=== PATIENT | female | born 1995 | race American Indian/Alaskan Native ===

== ENCOUNTER 2022-05-22 23:29 | Inpatient (IN) | payer MEDICAID ==
[2022-05-22] MEDS ORDERED: OXYTOCIN DRIP 30 UNITS/500 ML BAG IV SCH (23:45)
[2022-05-22] MEDS ORDERED: fentaNYL 100 MCG/2 ML INJ IV PRN (23:47)
[2022-05-22] MEDS ORDERED: OXYTOCIN 10 UNIT/1 ML INJ IM PRN (23:47)
[2022-05-22] MEDS ORDERED: TERBUTALINE 1 MG/1 ML INJ SUB-Q PRN (23:47)
[2022-05-22] MEDS ORDERED: ePHEDrine SULFATE 50 MG/1 ML INJ IV PRN (23:47)
[2022-05-22] MEDS ORDERED: BUTORPHANOL 2 MG/1 ML INJ IV PRN (23:47)
[2022-05-22] MEDS ORDERED: LOPERAMIDE 2 MG CAP PO PRN (23:47)
[2022-05-22] MEDS ORDERED: ONDANSETRON 4 MG/2 ML INJ IV PRN (23:47)
[2022-05-22] MEDS ORDERED: miSOPROStol 200 MCG TAB PR PRN (23:47)
[2022-05-22] MEDS ORDERED: CARBOPROST TROMETHAMINE 250 MCG/1 ML INJ IM PRN (23:47)
[2022-05-22] MEDS ORDERED: PROMETHAZINE 25 MG TAB PO PRN (23:47)
[2022-05-22] MEDS ORDERED: NALOXONE 0.4 MG/1 ML INJ IV PRN (23:47)
[2022-05-22] MEDS ORDERED: MINERAL OIL 30 ML ORAL LIQD PO PRN (23:47)
[2022-05-22] MEDS ORDERED: ACETAMINOPHEN 325 MG TAB PO PRN (23:47)
[2022-05-22] MEDS ORDERED: LIDOCAINE (2%) 20 MG/1 ML VIAL 20 ML MDV INFILTRATI ONE (23:47)
--- NOTE | 2022-05-22 23:53 | History and Physical Report ---
History of Present Illness Date of examination: 05/22/22 Date of admission: 05/22/22 23:29 Chief complaint: IOL History of present illness: Pt is a 26 y.o. @ 39.1 wks who presented to labor and delivery for IOL d/t cHTN on [facility]. She was being followed by [facility] d/t cHTN. Her last BPP on 05/13 at [facility] was 8/8. Her last growth u/s was on 05/06: EFW 6-2 (31%). EDC Confirmation: 05/29/2022 Gestational Age: 39.1 weeks on admission Past History : 1 Term Births: 0 Premature Births: 0 Living Children: 0 Para: 0 Mult. Births: 0 Prev : 0 Prev. attempt? 0 Aborta: 0 Elect. Ab: 0 Spont. Ab: 0 Ectopics: 0 Past Medical History: Reviewed history from 10/08/2021 and no changes required: Hypertension Past Surgical History: Reviewed history from 08/28/2021 and no changes required: negative Risk Factors: Smoked Tobacco Use: Never smoker Smokeless Tobacco Use: Never Counseled to Quit/Cut Down: yes Passive Smoke Exposure: no HIV High Risk Behavior: no Caffeine Use: 0 drinks per day Exercise: yes Times/wk: 0 Type of Exercise: walking Exercise Counseling: yes Seatbelt Use: preg-licensed professional counselor % Sun Exposure: occasionally No Dietary Counseling Reason: pn yes Past Medical History Anesthesia Complications: negative Anemia: negative Autoimmune Disorder: negative Bleeding Disorder: negative Blood Transfusions: negative Breast Disease: negative Diabetes: negative Heart Disease: negative Hypertension: positive Hepatitis/Liver Disease: negative Kidney Disease/UTI: negative Neurologic/Epilepsy/Migraines: negative Phlebitis/Varicosities: negative Psychiatric: negative Pulmonary Disease/Asthma: negative Thyroid Disease: negative Hospitalizations: negative Surgery (Non-crm manager): negative Abnormal PAP: negative CHLOE Exposure: negative Infertility: negative Uterine Anomaly: negative Uterine Surgery (not C/S): negative Other Gynecologic Problems: negative Social Hx: Patient is single Smoking History: Patient has never smoked. Infection History Hx of STD: none HIV Risk Eval: no Hepatitis B Risk Eval: low risk Personal hx. of genital herpes: no Partner hx. of genital herpes: no Rash, Viral, or Febrile illness since last LMP? no Varicella/Chicken Pox Status: No TB Risk: no Genetic History Congenital Heart Defect: Mom: yes Dad: no Comments: Mother César Disease: Mom: no Dad: no Thalassemia Mom: no Dad: no Neural Tube Defect Mom: no Dad: no Down's Syndrome Mom: no Dad: no Jax-Sachs Mom: no Dad: no Sickle Cell Disease/Trait Mom: no Dad: no Hemophilia Mom: no Dad: no Muscular Dystrophy Mom: no Dad: no Cystic Fibrosis Mom: no Dad: no [place] Chorea Mom: no Dad: no Mental Retardation Mom: no Dad: no Fragile X Mom: no Dad: no Other Genetic/Chromosomal Disorder Mom: no Dad: no Child w/other defect Mom: no Dad: no Enviromental Exposures Xray Exposure: no Medication, drug, or alcohol use since LMP: no Chemical/Other Exposure: no Exposure to Cat Liter: no Hx of Parvovirus (Fifth Disease): no Occupational Exposure to Children: none Active Medications (reviewed today): NORVASC 5MG () Current Allergies (reviewed today): * LATEX (Critical) Past History Past Medical History: hypertension Past Surgical History: no surgical history Family/Genetic History: none Social history: no significant social history - Obstetrical History Expected Date of Delivery: 05/29/22 Actual Gestation: 39 Week(s) 1 Day(s) : 1 Para: 0 Hx # Term Pregnancies: 0 Number of Pregnancies: 0 Spontaneous Abortions: 0 Induced : 0 Number of Living Children: 0 Medications and Allergies Allergies Allergy/AdvReac Type Severity Reaction Status Date / Time latex Allergy Swelling Verified 05/23/22 03:14 Review of Systems All systems: negative - Vital Signs Vital signs: Pt denies GALINDO, blurred vision, spots before her eyes, chest pain, shortness of breath, and upper abdominal pain. - Physical Exam Breasts: Positive: deferred Cardiovascular: Regular rate Lungs: Positive: Normal air movement Abdomen: Positive: normal appearance, soft Genitourinary (Female): Positive: normal external genitalia, normal perenium Vulva: both: normal Uterus: Positive: enlarged (Normal for 39 wks gestation) Extremities: Positive: normal Deep Tendon Reflex Grade: Normal +2 - Obstetrical FHR: category 1 Uterine Contraction Monitor Mode: External Cervical Dilatation: 0 Cervical Effacement Percentage: 0 station: -3 Uterine Contraction Pattern: Irregular Uterine Tone Measurement Phase: Resting Uterine Contraction Intensity: Mild Results Result Diagrams: 05/23/22 00:35 05/23/22 00:35 All other labs normal. GBS POSITIVE HBsAg Screen Negative Negative *1 RPR Non Reactive Non Reactive *2 Rubella Antibodies, IgG 9.59 index Immune >0.99 *3 Non-immune <0.90 Equivocal 0.90 - 0.99 Immune >0.99 ABO Grouping O *4 Rh Factor Positive *5 Please note: Prior records for this patient's ABO / Rh type are not available for additional verification. Antibody Screen Negative Negative *6 Tests: (2) Comp. Metabolic Panel (14) ([id number]) Glucose 85 mg/dL 65-99 *31 BUN 8 mg/dL 6-20 *32 Creatinine 0.67 mg/dL 0.57-1.00 *33 ! eGFR If NonAfricn Am 121 mL/min/1.73 >59 *34 ! eGFR If Africn Am 139 mL/min/1.73 >59 *35 In accordance with recommendations from the NKF-ASN Task force, [facility] is in the process of updating its eGFR calculation to the 2020 CKD-EPI creatinine equation that estimates kidney function without a race variable. BUN/Creatinine Ratio 12 9-23 *36 Sodium 137 mmol/L 134-144 *37 Potassium 3.7 mmol/L 3.5-5.2 *38 Chloride 104 mmol/L 96-106 *39 Carbon Dioxide, Total [L] 19 mmol/L 20-29 *40 Calcium 9.3 mg/dL 8.7-10.2 *41 Protein, Total 6.6 g/dL 6.0-8.5 *42 Albumin 4.1 g/dL 3.9-5.0 *43 Globulin, Total 2.5 g/dL 1.5-4.5 *44 A/G Ratio 1.6 1.2-2.2 *45 Bilirubin, Total 0.3 mg/dL 0.0-1.2 *46 Alkaline Phosphatase 66 IU/L 44-121 *47 AST (SGOT) 19 IU/L 0-40 *48 ALT (SGPT) 28 IU/L 0-32 *49 Tests: (3) Creatinine Clearance (486012) Creatinine, Urine 83.1 mg/dL Not Estab. *50 Creatinine, Ur 24hr 1454 mg/24 hr 800-1800 *51 Creatinine Clearance [H] 151 mL/min 88-128 *52 The above range is based on 1.73 square meter average body surface area. Tests: (4) Protein Total, Qn, 24-Hr Urine ([id number]) Protein,Total,Urine 14.1 mg/dL Not Estab. *53 Prot,24hr calculated [H] 247 mg/24 hr 30-150 *54 Tests: (5) HB Solu + Rflx Frac (876334) Hemoglobin (Hgb) Solubility Negative Negative *55 Tests: (6) HIV Ab/p24 Ag with Reflex ([id number]) HIV Ab/p24 Ag Screen Non Reactive Non Reactive *56 HIV Negative HIV-1/HIV-2 antibodies and HIV-1 p24 antigen were NOT detected. There is no laboratory evidence of HIV infection. Tests: (7) HCV Antibody reflex to MARYANN ([id number]) HCV Ab <0.1 s/co ratio 0.0-0.9 *57 Tests: (8) Interpretation: ([id number]) ! Interpretation: SPRCS *58 Negative Not infected with HCV, unless recent infection is suspected or other evidence exists to indicate HCV infection. Assessment and Plan A: 26 y.o. @ 39.1 wks IOL d/t cHTN. - Patient Problems (1) Chronic hypertension affecting Current Visit: Yes Status: Acute Plan to address problem: Admit to labor and delivery for IOL. Initiate IV. Draw admission and Pre-eclampsia labs. Pain management: IV pain medication and epidural when pt desires. Monitor for s/sx of Pre-eclampsia. Start IOL with low dose Pitocin. (2) with 39 completed weeks gestation Current Visit: Yes Status: Acute Plan to address problem: Monitor status through EFM. (3) GBS (group B streptococcus) infection Current Visit: Yes Status: Acute Plan to address problem: Antibiotics while in labor.
[2022-05-23 00:52] LABS: Hematocrit 25.9 % (30.3-42.9); Hemoglobin 8.8 gm/dl (10.1-14.3); Mean Corpuscular HGB Conc 34 % (30-34); Mean Corpuscular Volume 86 fl (79-97); Platelet Count 265 K/mm3 (140-440); Red Cell Distribution Width 14.8 % (13.2-15.2)
[2022-05-23 01:12] LABS: Alanine Aminotransferase 16 units/L (7-56)
[2022-05-23 02:17] LABS: Uric Acid 3.5 mg/dL (3.5-7.6)
[2022-05-23] MEDS ORDERED: LACTATED RINGERS 1,000 ML ONE (03:21)
[2022-05-23] MEDS: LACTATED RINGERS 1,000 ML IV SCH (03:41)
[2022-05-23] MEDS: OXYTOCIN DRIP 30 UNITS/500 ML BAG IV SCH (03:42)
--- NOTE | 2022-05-23 05:14 | Progress Note ---
Assessment and Plan A: 26 y.o. @ 39.1 wks, IOL d/t cHTN. - Patient Problems (1) Chronic hypertension affecting Current Visit: Yes Status: Acute Plan to address problem: Continue to monitor blood pressures. Monitor for s/sx of Pre-eclampsia. Continue with IOL with low dose Pitocin. - If cervical exam the same on the evening of 05/[address]ervidil. (2) with 39 completed weeks gestation Current Visit: Yes Status: Acute Plan to address problem: Continue to monitor status through EFM. Subjective - Subjective Date of service: 05/23/22 Principal diagnosis: IUP @ 39.1, IOL d/t cHTN Interval history: Pt doing well. Denies GALINDO, blurred vision, spots before her eyes, chest pain, shortness of breath, and upper abdominal pain. Patient reports: movement normal, no new complaints, no loss of fluid, no vaginal bleeding, no contractions Objective - Vital Signs Vital Signs: Vital Signs - 12hr 05/23/22 05/23/22 05/23/22 00:01 00:02 00:07 Temperature Pulse Rate 96 H 90 87 Blood Pressure 135/81 O2 Sat by Pulse 98 99 Oximetry 05/23/22 05/23/22 05/23/22 00:12 00:14 00:46 Temperature 97.9 F Pulse Rate 86 90 Blood Pressure O2 Sat by Pulse 99 100 Oximetry 05/23/22 05/23/22 05/23/22 00:51 00:56 01:01 Temperature Pulse Rate 88 84 85 Blood Pressure O2 Sat by Pulse 100 99 99 Oximetry 05/23/22 05/23/22 05/23/22 01:06 01:11 01:16 Temperature Pulse Rate 91 H 88 84 Blood Pressure O2 Sat by Pulse 100 100 100 Oximetry 05/23/22 05/23/22 05/23/22 01:21 01:26 01:33 Temperature Pulse Rate 81 76 89 Blood Pressure O2 Sat by Pulse 100 100 100 Oximetry 05/23/22 05/23/22 05/23/22 01:38 01:43 01:48 Temperature Pulse Rate 77 81 78 Blood Pressure 138/80 O2 Sat by Pulse 100 100 100 Oximetry 05/23/22 05/23/22 05/23/22 01:53 01:58 02:03 Temperature Pulse Rate 77 78 84 Blood Pressure O2 Sat by Pulse 100 100 100 Oximetry 05/23/22 05/23/22 05/23/22 02:08 02:13 02:18 Temperature Pulse Rate 75 80 79 Blood Pressure O2 Sat by Pulse 100 99 100 Oximetry 05/23/22 05/23/22 05/23/22 02:23 02:28 02:33 Temperature Pulse Rate 75 80 82 Blood Pressure O2 Sat by Pulse 100 100 100 Oximetry 05/23/22 05/23/22 05/23/22 02:38 02:43 02:48 Temperature Pulse Rate 86 86 87 Blood Pressure O2 Sat by Pulse 99 98 99 Oximetry 05/23/22 05/23/22 05/23/22 02:51 02:53 02:58 Temperature Pulse Rate 81 81 86 Blood Pressure 129/75 O2 Sat by Pulse 99 98 Oximetry 05/23/22 05/23/22 05/23/22 03:03 03:08 03:13 Temperature Pulse Rate 90 94 H 85 Blood Pressure O2 Sat by Pulse 98 99 98 Oximetry 05/23/22 05/23/22 05/23/22 03:18 03:23 03:28 Temperature Pulse Rate 83 82 79 Blood Pressure O2 Sat by Pulse 98 98 99 Oximetry 05/23/22 05/23/22 05/23/22 03:33 03:38 03:40 Temperature 98.5 F Pulse Rate 80 77 Blood Pressure O2 Sat by Pulse 100 99 Oximetry 05/23/22 05/23/22 05/23/22 03:43 03:48 03:49 Temperature Pulse Rate 82 79 83 Blood Pressure 135/80 O2 Sat by Pulse 99 99 Oximetry 05/23/22 05/23/22 05/23/22 03:53 03:58 04:03 Temperature Pulse Rate 78 84 82 Blood Pressure O2 Sat by Pulse 98 98 99 Oximetry 05/23/22 05/23/22 05/23/22 04:08 04:13 04:18 Temperature Pulse Rate 82 78 78 Blood Pressure O2 Sat by Pulse 99 99 99 Oximetry 05/23/22 05/23/22 05/23/22 04:23 04:28 04:40 Temperature Pulse Rate 82 77 88 Blood Pressure O2 Sat by Pulse 98 99 100 Oximetry 05/23/22 05/23/22 05/23/22 04:45 04:50 04:55 Temperature Pulse Rate 85 84 79 Blood Pressure 126/66 O2 Sat by Pulse 100 97 100 Oximetry 05/23/22 05/23/22 05/23/22 05:00 05:05 05:10 Temperature Pulse Rate 85 80 84 Blood Pressure O2 Sat by Pulse 99 99 99 Oximetry - Exam Breasts: deferred Cardiovascular: Regular rate Lungs: Normal air movement Abdomen: Present: normal appearance, soft Vulva: both: normal Uterus: Present: normal FHR: category 1 Uterine Contraction Monitor Mode: External Cervical Dilatation: 0 (Exam from 0047) Cervical Effacement Percentage: 0 station: -3 Uterine Contraction Pattern: Irregular Uterine Tone Measurement Phase: Resting Extremities: normal Deep Tendon Reflex Grade: Normal +2 - Labs Labs: Abnormal Labs 05/23/22 05/23/22 00:35 00:35 RBC 3.00 L Hgb 8.8 L Hct 25.9 L Creatinine 0.5 L Lactate Dehydrogenase 207 H Laboratory Results - last 24 hr 05/23/22 05/23/22 05/23/22 00:35 00:35 00:35 WBC 9.1 RBC 3.00 L Hgb 8.8 L Hct 25.9 L MCV 86 MCH 29 MCHC 34 RDW 14.8 Plt Count 265 Creatinine 0.5 L Estimated GFR > 60 Uric Acid 3.5 AST 19 ALT 16 Lactate Dehydrogenase 207 H Syphilis IgG/IgM Ab Blood Type O POSITIVE Antibody Screen Negative 05/23/22 01:19 WBC RBC Hgb Hct MCV MCH MCHC RDW Plt Count Creatinine Estimated GFR Uric Acid AST ALT Lactate Dehydrogenase Syphilis IgG/IgM Ab Nonreactive Blood Type Antibody Screen
--- NOTE | 2022-05-23 09:20 | Progress Note ---
Assessment and Plan Continue pitocin - Patient Problems (1) Chronic hypertension affecting Current Visit: Yes Status: Acute (2) with 39 completed weeks gestation Current Visit: Yes Status: Acute Subjective - Subjective Date of service: 05/23/22 Principal diagnosis: IUP @ 39.1, IOL d/t cHTN Patient reports: movement normal, no new complaints, no loss of fluid, no vaginal bleeding, no contractions Objective - Vital Signs Vital Signs: Vital Signs - 12hr 05/23/22 05/23/22 05/23/22 00:01 00:02 00:07 Temperature Pulse Rate 96 H 90 87 Blood Pressure 135/81 O2 Sat by Pulse 98 99 Oximetry 05/23/22 05/23/22 05/23/22 00:12 00:14 00:46 Temperature 97.9 F Pulse Rate 86 90 Blood Pressure O2 Sat by Pulse 99 100 Oximetry 05/23/22 05/23/22 05/23/22 00:51 00:56 01:01 Temperature Pulse Rate 88 84 85 Blood Pressure O2 Sat by Pulse 100 99 99 Oximetry 05/23/22 05/23/22 05/23/22 01:06 01:11 01:16 Temperature Pulse Rate 91 H 88 84 Blood Pressure O2 Sat by Pulse 100 100 100 Oximetry 05/23/22 05/23/22 05/23/22 01:21 01:26 01:33 Temperature Pulse Rate 81 76 89 Blood Pressure O2 Sat by Pulse 100 100 100 Oximetry 05/23/22 05/23/22 05/23/22 01:38 01:43 01:48 Temperature Pulse Rate 77 81 78 Blood Pressure 138/80 O2 Sat by Pulse 100 100 100 Oximetry 05/23/22 05/23/22 05/23/22 01:53 01:58 02:03 Temperature Pulse Rate 77 78 84 Blood Pressure O2 Sat by Pulse 100 100 100 Oximetry 05/23/22 05/23/22 05/23/22 02:08 02:13 02:18 Temperature Pulse Rate 75 80 79 Blood Pressure O2 Sat by Pulse 100 99 100 Oximetry 05/23/22 05/23/22 05/23/22 02:23 02:28 02:33 Temperature Pulse Rate 75 80 82 Blood Pressure O2 Sat by Pulse 100 100 100 Oximetry 05/23/22 05/23/22 05/23/22 02:38 02:43 02:48 Temperature Pulse Rate 86 86 87 Blood Pressure O2 Sat by Pulse 99 98 99 Oximetry 05/23/22 05/23/22 05/23/22 02:51 02:53 02:58 Temperature Pulse Rate 81 81 86 Blood Pressure 129/75 O2 Sat by Pulse 99 98 Oximetry 05/23/22 05/23/22 05/23/22 03:03 03:08 03:13 Temperature Pulse Rate 90 94 H 85 Blood Pressure O2 Sat by Pulse 98 99 98 Oximetry 05/23/22 05/23/22 05/23/22 03:18 03:23 03:28 Temperature Pulse Rate 83 82 79 Blood Pressure O2 Sat by Pulse 98 98 99 Oximetry 05/23/22 05/23/22 05/23/22 03:33 03:38 03:40 Temperature 98.5 F Pulse Rate 80 77 Blood Pressure O2 Sat by Pulse 100 99 Oximetry 05/23/22 05/23/22 05/23/22 03:43 03:48 03:49 Temperature Pulse Rate 82 79 83 Blood Pressure 135/80 O2 Sat by Pulse 99 99 Oximetry 05/23/22 05/23/22 05/23/22 03:53 03:58 04:03 Temperature Pulse Rate 78 84 82 Blood Pressure O2 Sat by Pulse 98 98 99 Oximetry 05/23/22 05/23/22 05/23/22 04:08 04:13 04:18 Temperature Pulse Rate 82 78 78 Blood Pressure O2 Sat by Pulse 99 99 99 Oximetry 05/23/22 05/23/22 05/23/22 04:23 04:28 04:40 Temperature Pulse Rate 82 77 88 Blood Pressure O2 Sat by Pulse 98 99 100 Oximetry 05/23/22 05/23/22 05/23/22 04:45 04:50 04:55 Temperature Pulse Rate 85 84 79 Blood Pressure 126/66 O2 Sat by Pulse 100 97 100 Oximetry 05/23/22 05/23/22 05/23/22 05:00 05:05 05:10 Temperature Pulse Rate 85 80 84 Blood Pressure O2 Sat by Pulse 99 99 99 Oximetry 05/23/22 05/23/22 05/23/22 05:15 05:20 05:29 Temperature Pulse Rate 79 82 90 Blood Pressure O2 Sat by Pulse 99 99 87 Oximetry 05/23/22 05/23/22 05/23/22 05:34 05:39 05:44 Temperature Pulse Rate 85 81 79 Blood Pressure O2 Sat by Pulse 100 100 99 Oximetry 05/23/22 05/23/22 05/23/22 05:49 05:52 05:54 Temperature Pulse Rate 82 80 83 Blood Pressure 131/76 O2 Sat by Pulse 100 98 Oximetry 05/23/22 05/23/22 05/23/22 05:59 06:04 06:09 Temperature Pulse Rate 82 83 86 Blood Pressure O2 Sat by Pulse 98 97 97 Oximetry 05/23/22 05/23/22 05/23/22 06:14 06:19 06:24 Temperature Pulse Rate 82 82 85 Blood Pressure O2 Sat by Pulse 98 97 97 Oximetry 05/23/22 05/23/22 05/23/22 06:29 06:34 06:41 Temperature Pulse Rate 84 82 63 Blood Pressure O2 Sat by Pulse 97 98 96 Oximetry 05/23/22 05/23/22 05/23/22 06:46 06:49 06:51 Temperature Pulse Rate 93 H 80 86 Blood Pressure 134/82 O2 Sat by Pulse 99 98 Oximetry 05/23/22 05/23/22 05/23/22 06:56 07:01 07:06 Temperature Pulse Rate 79 82 81 Blood Pressure O2 Sat by Pulse 98 99 99 Oximetry 05/23/22 05/23/22 05/23/22 07:11 07:16 07:21 Temperature Pulse Rate 81 81 84 Blood Pressure O2 Sat by Pulse 98 98 99 Oximetry 05/23/22 05/23/22 05/23/22 07:26 07:31 07:36 Temperature Pulse Rate 84 83 78 Blood Pressure O2 Sat by Pulse 99 100 99 Oximetry 05/23/22 05/23/22 05/23/22 07:41 07:46 07:47 Temperature Pulse Rate 79 75 79 Blood Pressure 136/84 O2 Sat by Pulse 99 97 Oximetry 05/23/22 05/23/22 05/23/22 07:51 07:56 08:03 Temperature Pulse Rate 75 96 H 98 H Blood Pressure O2 Sat by Pulse 99 88 88 Oximetry 05/23/22 05/23/22 05/23/22 08:08 08:13 08:15 Temperature Pulse Rate 84 85 95 H Blood Pressure O2 Sat by Pulse 100 99 82 L Oximetry 05/23/22 05/23/22 05/23/22 08:18 08:23 08:28 Temperature Pulse Rate 90 97 H 81 Blood Pressure O2 Sat by Pulse 100 100 99 Oximetry 05/23/22 05/23/22 05/23/22 08:33 08:38 08:43 Temperature Pulse Rate 82 82 80 Blood Pressure O2 Sat by Pulse 100 100 100 Oximetry 05/23/22 05/23/22 05/23/22 08:48 08:53 08:58 Temperature Pulse Rate 77 75 77 Blood Pressure 133/84 O2 Sat by Pulse 99 100 100 Oximetry 05/23/22 05/23/22 05/23/22 09:03 09:08 09:09 Temperature Pulse Rate 79 86 85 Blood Pressure O2 Sat by Pulse 100 100 85 Oximetry 05/23/22 05/23/22 09:13 09:16 Temperature Pulse Rate 90 81 Blood Pressure 167/98 O2 Sat by Pulse 100 Oximetry - Exam Breasts: deferred Cardiovascular: Regular rate Lungs: Normal air movement Abdomen: Present: soft. Absent: tenderness Vulva: both: normal Uterus: Present: fundal height above umbilicus. Absent: tenderness FHR: category 1 Uterine Contraction Monitor Mode: External Cervical Dilatation: 2.5 Cervical Effacement Percentage: 30 station: -1 Uterine Contraction Pattern: Irregular Extremities: normal Deep Tendon Reflex Grade: Normal +2 - Labs Labs: Abnormal Labs 05/23/22 05/23/22 00:35 00:35 RBC 3.00 L Hgb 8.8 L Hct 25.9 L Creatinine 0.5 L Lactate Dehydrogenase 207 H Laboratory Results - last 24 hr 05/23/22 05/23/22 05/23/22 00:35 00:35 00:35 WBC 9.1 RBC 3.00 L Hgb 8.8 L Hct 25.9 L MCV 86 MCH 29 MCHC 34 RDW 14.8 Plt Count 265 Creatinine 0.5 L Estimated GFR > 60 Uric Acid 3.5 AST 19 ALT 16 Lactate Dehydrogenase 207 H Syphilis IgG/IgM Ab Blood Type O POSITIVE Antibody Screen Negative 05/23/22 01:19 WBC RBC Hgb Hct MCV MCH MCHC RDW Plt Count Creatinine Estimated GFR Uric Acid AST ALT Lactate Dehydrogenase Syphilis IgG/IgM Ab Nonreactive Blood Type Antibody Screen
[2022-05-23 09:29] LABS: Bacteria,Urine 1+ /HPF (Negative)
[2022-05-23 09:35] LABS: Color,Urine Yellow (Yellow)
[2022-05-23 09:36] LABS: Bilirubin,Urine Negative (Negative)
[2022-05-23 09:37] LABS: Blood,Urine Trace (Negative); Urobilinogen,Urine < 2.0 mg/dL (<2.0)
[2022-05-23] MEDS: amLODIPine 10 MG TAB PO SCH (10:48)
[2022-05-23 11:12] LABS: Creatinine,Urine 59.2 mg/dL (0.1-20.0); Protein/Creatinine Ratio,Urine 0.2
--- NOTE | 2022-05-23 11:42 | Event Note ---
Date: 05/23/22 Patient up to bathroom, now standing in room. Monitors adjusted, instrd to call desk if FHT's are unable to be heard
[2022-05-23] MEDS ORDERED: ePHEDrine SULFATE 50 MG/1 ML INJ IV PRN (13:08)
[2022-05-23] MEDS ORDERED: miSOPROStol 200 MCG TAB PR PRN (13:08)
[2022-05-23] MEDS ORDERED: MINERAL OIL 30 ML ORAL LIQD PO PRN (13:08)
[2022-05-23] MEDS ORDERED: LACTATED RINGERS 1,000 ML IV SCH (13:30)
[2022-05-23] MEDS ORDERED: AMPICILLIN/NS 2 GM/100 ML 2 GM/100 ML BAG IV ONE (14:00)
--- NOTE | 2022-05-23 15:23 | Progress Note ---
Assessment and Plan Anticipate vaginal delivery [place] [facility] Problems (1) Chronic hypertension affecting Current Visit: Yes Status: Acute (2) with 39 completed weeks gestation Current Visit: Yes Status: Acute Subjective - Subjective Date of service: 05/23/22 Principal diagnosis: IUP @ 39.1, IOL d/t cHTN Patient reports: new complaints, movement normal, contractions, no loss of fluid, no vaginal bleeding Objective - Vital Signs Vital Signs: Vital Signs - 12hr 05/23/22 05/23/22 05/23/22 03:23 03:28 03:33 Temperature Pulse Rate 82 79 80 Respiratory Rate Blood Pressure O2 Sat by Pulse 98 99 100 Oximetry O2 Sat by Pulse Oximetry [ Bilateral] 05/23/22 05/23/22 05/23/22 03:38 03:40 03:43 Temperature 98.5 F Pulse Rate 77 82 Respiratory Rate Blood Pressure O2 Sat by Pulse 99 99 Oximetry O2 Sat by Pulse Oximetry [ Bilateral] 05/23/22 05/23/22 05/23/22 03:48 03:49 03:53 Temperature Pulse Rate 79 83 78 Respiratory Rate Blood Pressure 135/80 O2 Sat by Pulse 99 98 Oximetry O2 Sat by Pulse Oximetry [ Bilateral] 05/23/22 05/23/22 05/23/22 03:58 04:03 04:08 Temperature Pulse Rate 84 82 82 Respiratory Rate Blood Pressure O2 Sat by Pulse 98 99 99 Oximetry O2 Sat by Pulse Oximetry [ Bilateral] 05/23/22 05/23/22 05/23/22 04:13 04:18 04:23 Temperature Pulse Rate 78 78 82 Respiratory Rate Blood Pressure O2 Sat by Pulse 99 99 98 Oximetry O2 Sat by Pulse Oximetry [ Bilateral] 05/23/22 05/23/22 05/23/22 04:28 04:40 04:45 Temperature Pulse Rate 77 88 85 Respiratory Rate Blood Pressure O2 Sat by Pulse 99 100 100 Oximetry O2 Sat by Pulse Oximetry [ Bilateral] 05/23/22 05/23/22 05/23/22 04:50 04:55 05:00 Temperature Pulse Rate 84 79 85 Respiratory Rate Blood Pressure 126/66 O2 Sat by Pulse 97 100 99 Oximetry O2 Sat by Pulse Oximetry [ Bilateral] 05/23/22 05/23/22 05/23/22 05:05 05:10 05:15 Temperature Pulse Rate 80 84 79 Respiratory Rate Blood Pressure O2 Sat by Pulse 99 99 99 Oximetry O2 Sat by Pulse Oximetry [ Bilateral] 05/23/22 05/23/22 05/23/22 05:20 05:29 05:34 Temperature Pulse Rate 82 90 85 Respiratory Rate Blood Pressure O2 Sat by Pulse 99 87 100 Oximetry O2 Sat by Pulse Oximetry [ Bilateral] 05/23/22 05/23/22 05/23/22 05:39 05:44 05:49 Temperature Pulse Rate 81 79 82 Respiratory Rate Blood Pressure O2 Sat by Pulse 100 99 100 Oximetry O2 Sat by Pulse Oximetry [ Bilateral] 05/23/22 05/23/22 05/23/22 05:52 05:54 05:59 Temperature Pulse Rate 80 83 82 Respiratory Rate Blood Pressure 131/76 O2 Sat by Pulse 98 98 Oximetry O2 Sat by Pulse Oximetry [ Bilateral] 05/23/22 05/23/22 05/23/22 06:04 06:09 06:14 Temperature Pulse Rate 83 86 82 Respiratory Rate Blood Pressure O2 Sat by Pulse 97 97 98 Oximetry O2 Sat by Pulse Oximetry [ Bilateral] 05/23/22 05/23/22 05/23/22 06:19 06:24 06:29 Temperature Pulse Rate 82 85 84 Respiratory Rate Blood Pressure O2 Sat by Pulse 97 97 97 Oximetry O2 Sat by Pulse Oximetry [ Bilateral] 05/23/22 05/23/22 05/23/22 06:34 06:41 06:46 Temperature Pulse Rate 82 63 93 H Respiratory Rate Blood Pressure O2 Sat by Pulse 98 96 99 Oximetry O2 Sat by Pulse Oximetry [ Bilateral] 05/23/22 05/23/22 05/23/22 06:49 06:51 06:56 Temperature Pulse Rate 80 86 79 Respiratory Rate Blood Pressure 134/82 O2 Sat by Pulse 98 98 Oximetry O2 Sat by Pulse Oximetry [ Bilateral] 05/23/22 05/23/22 05/23/22 07:01 07:06 07:11 Temperature Pulse Rate 82 81 81 Respiratory Rate Blood Pressure O2 Sat by Pulse 99 99 98 Oximetry O2 Sat by Pulse Oximetry [ Bilateral] 05/23/22 05/23/22 05/23/22 07:16 07:21 07:26 Temperature Pulse Rate 81 84 84 Respiratory Rate Blood Pressure O2 Sat by Pulse 98 99 99 Oximetry O2 Sat by Pulse Oximetry [ Bilateral] 05/23/22 05/23/22 05/23/22 07:31 07:36 07:41 Temperature Pulse Rate 83 78 79 Respiratory Rate Blood Pressure O2 Sat by Pulse 100 99 99 Oximetry O2 Sat by Pulse Oximetry [ Bilateral] 05/23/22 05/23/22 05/23/22 07:45 07:46 07:47 Temperature 97.9 F Pulse Rate 75 79 Respiratory 18 Rate Blood Pressure 136/84 O2 Sat by Pulse 97 Oximetry O2 Sat by Pulse 98 Oximetry [ Bilateral] 05/23/22 05/23/22 05/23/22 07:51 07:56 08:03 Temperature Pulse Rate 75 96 H 98 H Respiratory Rate Blood Pressure O2 Sat by Pulse 99 88 88 Oximetry O2 Sat by Pulse Oximetry [ Bilateral] 05/23/22 05/23/22 05/23/22 08:08 08:13 08:15 Temperature Pulse Rate 84 85 95 H Respiratory Rate Blood Pressure O2 Sat by Pulse 100 99 82 L Oximetry O2 Sat by Pulse Oximetry [ Bilateral] 05/23/22 05/23/22 05/23/22 08:18 08:23 08:28 Temperature Pulse Rate 90 97 H 81 Respiratory Rate Blood Pressure O2 Sat by Pulse 100 100 99 Oximetry O2 Sat by Pulse Oximetry [ Bilateral] 05/23/22 05/23/22 05/23/22 08:33 08:38 08:43 Temperature Pulse Rate 82 82 80 Respiratory Rate Blood Pressure O2 Sat by Pulse 100 100 100 Oximetry O2 Sat by Pulse Oximetry [ Bilateral] 05/23/22 05/23/22 05/23/22 08:48 08:53 08:58 Temperature Pulse Rate 77 75 77 Respiratory Rate Blood Pressure 133/84 O2 Sat by Pulse 99 100 100 Oximetry O2 Sat by Pulse Oximetry [ Bilateral] 05/23/22 05/23/22 05/23/22 09:03 09:08 09:09 Temperature Pulse Rate 79 86 85 Respiratory Rate Blood Pressure O2 Sat by Pulse 100 100 85 Oximetry O2 Sat by Pulse Oximetry [ Bilateral] 05/23/22 05/23/22 05/23/22 09:13 09:16 09:18 Temperature Pulse Rate 90 81 87 Respiratory Rate Blood Pressure 167/98 O2 Sat by Pulse 100 91 Oximetry O2 Sat by Pulse Oximetry [ Bilateral] 05/23/22 05/23/22 05/23/22 09:20 09:23 09:28 Temperature Pulse Rate 78 83 102 H Respiratory Rate Blood Pressure 155/85 O2 Sat by Pulse 100 100 Oximetry O2 Sat by Pulse Oximetry [ Bilateral] 05/23/22 05/23/22 05/23/22 09:33 09:38 09:43 Temperature Pulse Rate 82 86 73 Respiratory Rate Blood Pressure O2 Sat by Pulse 100 99 100 Oximetry O2 Sat by Pulse Oximetry [ Bilateral] 05/23/22 05/23/22 05/23/22 09:58 10:03 10:08 Temperature Pulse Rate 38 L 82 85 Respiratory Rate Blood Pressure O2 Sat by Pulse 83 L 100 99 Oximetry O2 Sat by Pulse Oximetry [ Bilateral] 05/23/22 05/23/22 05/23/22 10:13 10:16 10:18 Temperature Pulse Rate 80 88 82 Respiratory Rate Blood Pressure 126/78 O2 Sat by Pulse 100 100 Oximetry O2 Sat by Pulse Oximetry [ Bilateral] 05/23/22 05/23/22 05/23/22 10:19 10:23 10:28 Temperature Pulse Rate 84 80 81 Respiratory Rate Blood Pressure 119/73 O2 Sat by Pulse 100 100 Oximetry O2 Sat by Pulse Oximetry [ Bilateral] 05/23/22 05/23/22 05/23/22 10:33 10:38 10:43 Temperature Pulse Rate 82 78 78 Respiratory Rate Blood Pressure O2 Sat by Pulse 100 100 100 Oximetry O2 Sat by Pulse Oximetry [ Bilateral] 05/23/22 05/23/22 05/23/22 10:45 10:48 10:53 Temperature Pulse Rate 80 82 84 Respiratory Rate Blood Pressure 130/81 127/78 O2 Sat by Pulse 100 100 Oximetry O2 Sat by Pulse Oximetry [ Bilateral] 05/23/22 05/23/22 05/23/22 10:58 11:03 11:40 Temperature Pulse Rate 77 81 97 H Respiratory Rate Blood Pressure O2 Sat by Pulse 100 100 98 Oximetry O2 Sat by Pulse Oximetry [ Bilateral] 05/23/22 05/23/22 05/23/22 11:45 11:50 11:55 Temperature Pulse Rate 72 82 94 H Respiratory Rate Blood Pressure O2 Sat by Pulse 99 100 99 Oximetry O2 Sat by Pulse Oximetry [ Bilateral] 05/23/22 05/23/22 05/23/22 12:00 12:05 12:09 Temperature Pulse Rate 87 87 83 Respiratory Rate Blood Pressure 124/75 O2 Sat by Pulse 99 96 Oximetry O2 Sat by Pulse Oximetry [ Bilateral] 05/23/22 05/23/22 05/23/22 12:10 12:15 12:20 Temperature 98.1 F Pulse Rate 89 92 H 82 Respiratory 20 Rate Blood Pressure O2 Sat by Pulse 99 99 99 Oximetry O2 Sat by Pulse Oximetry [ Bilateral] 05/23/22 05/23/22 05/23/22 12:22 12:25 12:30 Temperature Pulse Rate 79 77 81 Respiratory Rate Blood Pressure O2 Sat by Pulse 86 98 100 Oximetry O2 Sat by Pulse Oximetry [ Bilateral] 05/23/22 05/23/22 05/23/22 12:35 12:39 12:40 Temperature Pulse Rate 83 91 H 84 Respiratory Rate Blood Pressure 121/67 O2 Sat by Pulse 100 100 Oximetry O2 Sat by Pulse Oximetry [ Bilateral] 05/23/22 05/23/22 05/23/22 12:45 12:50 12:55 Temperature Pulse Rate 82 83 86 Respiratory Rate Blood Pressure O2 Sat by Pulse 100 100 99 Oximetry O2 Sat by Pulse Oximetry [ Bilateral] 05/23/22 05/23/22 05/23/22 13:00 13:05 13:09 Temperature Pulse Rate 85 81 90 Respiratory Rate Blood Pressure 118/68 O2 Sat by Pulse 98 98 Oximetry O2 Sat by Pulse Oximetry [ Bilateral] 05/23/22 05/23/22 05/23/22 13:10 13:15 13:20 Temperature Pulse Rate 88 84 83 Respiratory Rate Blood Pressure O2 Sat by Pulse 98 99 98 Oximetry O2 Sat by Pulse Oximetry [ Bilateral] 05/23/22 05/23/22 05/23/22 13:25 13:30 13:37 Temperature Pulse Rate 80 92 H 81 Respiratory Rate Blood Pressure O2 Sat by Pulse 98 99 0 L Oximetry O2 Sat by Pulse Oximetry [ Bilateral] 05/23/22 05/23/22 05/23/22 13:38 13:40 13:43 Temperature Pulse Rate 78 76 75 Respiratory Rate Blood Pressure 137/82 O2 Sat by Pulse 0 L 100 Oximetry O2 Sat by Pulse Oximetry [ Bilateral] 05/23/22 05/23/22 05/23/22 13:48 13:53 13:58 Temperature Pulse Rate 73 77 79 Respiratory Rate Blood Pressure O2 Sat by Pulse 99 99 100 Oximetry O2 Sat by Pulse Oximetry [ Bilateral] 05/23/22 05/23/22 05/23/22 14:03 14:08 14:11 Temperature Pulse Rate 83 83 79 Respiratory Rate Blood Pressure 134/77 O2 Sat by Pulse 100 100 Oximetry O2 Sat by Pulse Oximetry [ Bilateral] 05/23/22 05/23/22 05/23/22 14:13 14:18 14:23 Temperature Pulse Rate 80 87 87 Respiratory Rate Blood Pressure O2 Sat by Pulse 100 100 100 Oximetry O2 Sat by Pulse Oximetry [ Bilateral] 05/23/22 05/23/22 05/23/22 14:28 14:34 14:35 Temperature Pulse Rate 90 85 81 Respiratory Rate Blood Pressure O2 Sat by Pulse 100 84 100 Oximetry O2 Sat by Pulse Oximetry [ Bilateral] 05/23/22 05/23/22 05/23/22 14:39 14:40 14:45 Temperature Pulse Rate 80 82 83 Respiratory Rate Blood Pressure 136/84 O2 Sat by Pulse 100 99 Oximetry O2 Sat by Pulse Oximetry [ Bilateral] 05/23/22 05/23/22 05/23/22 14:48 14:50 14:55 Temperature Pulse Rate 77 83 78 Respiratory Rate Blood Pressure 132/74 O2 Sat by Pulse 98 99 Oximetry O2 Sat by Pulse Oximetry [ Bilateral] 05/23/22 05/23/22 05/23/22 15:00 15:15 15:16 Temperature Pulse Rate 89 85 Respiratory Rate Blood Pressure O2 Sat by Pulse 96 89 99 Oximetry O2 Sat by Pulse Oximetry [ Bilateral] - Exam Breasts: deferred Cardiovascular: Regular rate Lungs: Normal air movement Abdomen: Present: normal appearance, soft. Absent: tenderness Vulva: both: normal Uterus: Present: tenderness, fundal height above umbilicus FHR: category 1 Cervical Dilatation: 1.5 Cervical Effacement Percentage: 50 station: -2 Uterine Contraction Frequency (min): 2.5 Uterine Contraction Pattern: Regular - Labs Labs: Abnormal Labs 05/23/22 05/23/22 05/23/22 00:35 00:35 09:10 RBC 3.00 L Hgb 8.8 L Hct 25.9 L Creatinine 0.5 L Lactate Dehydrogenase 207 H Urine Creatinine 59.2 H Urine Total Protein 12 H Laboratory Results - last 24 hr 05/23/22 05/23/22 05/23/22 00:35 00:35 00:35 WBC 9.1 RBC 3.00 L Hgb 8.8 L Hct 25.9 L MCV 86 MCH 29 MCHC 34 RDW 14.8 Plt Count 265 Creatinine 0.5 L Estimated GFR > 60 Uric Acid 3.5 AST 19 ALT 16 Lactate Dehydrogenase 207 H Urine Color Urine Turbidity Urine pH Ur Specific Cade Urine Protein Urine Glucose (UA) Urine Ketones Urine Blood Urine Nitrite Ur Reducing Substances Urine Bilirubin Urine Ictotest Urine Urobilinogen Ur Leukocyte Esterase Urine WBC (Auto) Urine RBC (Auto) U Epithel Cells (Auto) Urine Bacteria (Auto) Urine Creatinine Protein/Creatinin Ratio Urine Total Protein Syphilis IgG/IgM Ab SARS-CoV-2 (PCR) Blood Type O POSITIVE Antibody Screen Negative 05/23/22 05/23/22 05/23/22 01:19 09:10 09:10 WBC RBC Hgb Hct MCV MCH MCHC RDW Plt Count Creatinine Estimated GFR Uric Acid AST ALT Lactate Dehydrogenase Urine Color Yellow Urine Turbidity Hazy Urine pH 7.0 Ur Specific Cade 1.025 Urine Protein 30 mg/dl Urine Glucose (UA) Negative Urine Ketones Negative Urine Blood Trace Urine Nitrite Negative Ur Reducing Substances Not Reportable Urine Bilirubin Negative Urine Ictotest Not Reportable Urine Urobilinogen < 2.0 Ur Leukocyte Esterase Negative Urine WBC (Auto) 3.0 Urine RBC (Auto) 3.0 U Epithel Cells (Auto) 9.0 Urine Bacteria (Auto) 1+ Urine Creatinine 59.2 H Protein/Creatinin Ratio 0.20 Urine Total Protein 12 H Syphilis IgG/IgM Ab Nonreactive SARS-CoV-2 (PCR) Blood Type Antibody Screen 05/23/22 10:15 WBC RBC Hgb Hct MCV MCH MCHC RDW Plt Count Creatinine Estimated GFR Uric Acid AST ALT Lactate Dehydrogenase Urine Color Urine Turbidity Urine pH Ur Specific Cade Urine Protein Urine Glucose (UA) Urine Ketones Urine Blood Urine Nitrite Ur Reducing Substances Urine Bilirubin Urine Ictotest Urine Urobilinogen Ur Leukocyte Esterase Urine WBC (Auto) Urine RBC (Auto) U Epithel Cells (Auto) Urine Bacteria (Auto) Urine Creatinine Protein/Creatinin Ratio Urine Total Protein Syphilis IgG/IgM Ab SARS-CoV-2 (PCR) Negative Blood Type Antibody Screen
--- NOTE | 2022-05-23 17:11 | Progress Note ---
Assessment and Plan - Patient Problems (1) Chronic hypertension affecting Current Visit: Yes Status: Acute (2) with 39 completed weeks gestation Current Visit: Yes Status: Acute Subjective - Subjective Date of service: 05/23/22 Principal diagnosis: IUP @ 39.1, IOL d/t cHTN Interval history: Standing at bedside. no new complaints Patient reports: new complaints, movement normal, contractions, no loss of fluid, no vaginal bleeding Objective - Vital Signs Vital Signs: Vital Signs - 12hr 05/23/22 05/23/22 05/23/22 05:15 05:20 05:29 Temperature Pulse Rate 79 82 90 Respiratory Rate Blood Pressure O2 Sat by Pulse 99 99 87 Oximetry O2 Sat by Pulse Oximetry [ Bilateral] 05/23/22 05/23/22 05/23/22 05:34 05:39 05:44 Temperature Pulse Rate 85 81 79 Respiratory Rate Blood Pressure O2 Sat by Pulse 100 100 99 Oximetry O2 Sat by Pulse Oximetry [ Bilateral] 05/23/22 05/23/22 05/23/22 05:49 05:52 05:54 Temperature Pulse Rate 82 80 83 Respiratory Rate Blood Pressure 131/76 O2 Sat by Pulse 100 98 Oximetry O2 Sat by Pulse Oximetry [ Bilateral] 05/23/22 05/23/22 05/23/22 05:59 06:04 06:09 Temperature Pulse Rate 82 83 86 Respiratory Rate Blood Pressure O2 Sat by Pulse 98 97 97 Oximetry O2 Sat by Pulse Oximetry [ Bilateral] 05/23/22 05/23/22 05/23/22 06:14 06:19 06:24 Temperature Pulse Rate 82 82 85 Respiratory Rate Blood Pressure O2 Sat by Pulse 98 97 97 Oximetry O2 Sat by Pulse Oximetry [ Bilateral] 05/23/22 05/23/22 05/23/22 06:29 06:34 06:41 Temperature Pulse Rate 84 82 63 Respiratory Rate Blood Pressure O2 Sat by Pulse 97 98 96 Oximetry O2 Sat by Pulse Oximetry [ Bilateral] 05/23/22 05/23/22 05/23/22 06:46 06:49 06:51 Temperature Pulse Rate 93 H 80 86 Respiratory Rate Blood Pressure 134/82 O2 Sat by Pulse 99 98 Oximetry O2 Sat by Pulse Oximetry [ Bilateral] 05/23/22 05/23/22 05/23/22 06:56 07:01 07:06 Temperature Pulse Rate 79 82 81 Respiratory Rate Blood Pressure O2 Sat by Pulse 98 99 99 Oximetry O2 Sat by Pulse Oximetry [ Bilateral] 05/23/22 05/23/22 05/23/22 07:11 07:16 07:21 Temperature Pulse Rate 81 81 84 Respiratory Rate Blood Pressure O2 Sat by Pulse 98 98 99 Oximetry O2 Sat by Pulse Oximetry [ Bilateral] 05/23/22 05/23/22 05/23/22 07:26 07:31 07:36 Temperature Pulse Rate 84 83 78 Respiratory Rate Blood Pressure O2 Sat by Pulse 99 100 99 Oximetry O2 Sat by Pulse Oximetry [ Bilateral] 05/23/22 05/23/22 05/23/22 07:41 07:45 07:46 Temperature 97.9 F Pulse Rate 79 75 Respiratory 18 Rate Blood Pressure O2 Sat by Pulse 99 97 Oximetry O2 Sat by Pulse 98 Oximetry [ Bilateral] 05/23/22 05/23/22 05/23/22 07:47 07:51 07:56 Temperature Pulse Rate 79 75 96 H Respiratory Rate Blood Pressure 136/84 O2 Sat by Pulse 99 88 Oximetry O2 Sat by Pulse Oximetry [ Bilateral] 05/23/22 05/23/22 05/23/22 08:03 08:08 08:13 Temperature Pulse Rate 98 H 84 85 Respiratory Rate Blood Pressure O2 Sat by Pulse 88 100 99 Oximetry O2 Sat by Pulse Oximetry [ Bilateral] 05/23/22 05/23/22 05/23/22 08:15 08:18 08:23 Temperature Pulse Rate 95 H 90 97 H Respiratory Rate Blood Pressure O2 Sat by Pulse 82 L 100 100 Oximetry O2 Sat by Pulse Oximetry [ Bilateral] 05/23/22 05/23/22 05/23/22 08:28 08:33 08:38 Temperature Pulse Rate 81 82 82 Respiratory Rate Blood Pressure O2 Sat by Pulse 99 100 100 Oximetry O2 Sat by Pulse Oximetry [ Bilateral] 05/23/22 05/23/22 05/23/22 08:43 08:48 08:53 Temperature Pulse Rate 80 77 75 Respiratory Rate Blood Pressure 133/84 O2 Sat by Pulse 100 99 100 Oximetry O2 Sat by Pulse Oximetry [ Bilateral] 05/23/22 05/23/22 05/23/22 08:58 09:03 09:08 Temperature Pulse Rate 77 79 86 Respiratory Rate Blood Pressure O2 Sat by Pulse 100 100 100 Oximetry O2 Sat by Pulse Oximetry [ Bilateral] 05/23/22 05/23/22 05/23/22 09:09 09:13 09:16 Temperature Pulse Rate 85 90 81 Respiratory Rate Blood Pressure 167/98 O2 Sat by Pulse 85 100 Oximetry O2 Sat by Pulse Oximetry [ Bilateral] 05/23/22 05/23/22 05/23/22 09:18 09:20 09:23 Temperature Pulse Rate 87 78 83 Respiratory Rate Blood Pressure 155/85 O2 Sat by Pulse 91 100 Oximetry O2 Sat by Pulse Oximetry [ Bilateral] 05/23/22 05/23/22 05/23/22 09:28 09:33 09:38 Temperature Pulse Rate 102 H 82 86 Respiratory Rate Blood Pressure O2 Sat by Pulse 100 100 99 Oximetry O2 Sat by Pulse Oximetry [ Bilateral] 05/23/22 05/23/22 05/23/22 09:43 09:58 10:03 Temperature Pulse Rate 73 38 L 82 Respiratory Rate Blood Pressure O2 Sat by Pulse 100 83 L 100 Oximetry O2 Sat by Pulse Oximetry [ Bilateral] 05/23/22 05/23/22 05/23/22 10:08 10:13 10:16 Temperature Pulse Rate 85 80 88 Respiratory Rate Blood Pressure 126/78 O2 Sat by Pulse 99 100 Oximetry O2 Sat by Pulse Oximetry [ Bilateral] 05/23/22 05/23/22 05/23/22 10:18 10:19 10:23 Temperature Pulse Rate 82 84 80 Respiratory Rate Blood Pressure 119/73 O2 Sat by Pulse 100 100 Oximetry O2 Sat by Pulse Oximetry [ Bilateral] 05/23/22 05/23/22 05/23/22 10:28 10:33 10:38 Temperature Pulse Rate 81 82 78 Respiratory Rate Blood Pressure O2 Sat by Pulse 100 100 100 Oximetry O2 Sat by Pulse Oximetry [ Bilateral] 05/23/22 05/23/22 05/23/22 10:43 10:45 10:48 Temperature Pulse Rate 78 80 82 Respiratory Rate Blood Pressure 130/81 127/78 O2 Sat by Pulse 100 100 Oximetry O2 Sat by Pulse Oximetry [ Bilateral] 05/23/22 05/23/22 05/23/22 10:53 10:58 11:03 Temperature Pulse Rate 84 77 81 Respiratory Rate Blood Pressure O2 Sat by Pulse 100 100 100 Oximetry O2 Sat by Pulse Oximetry [ Bilateral] 05/23/22 05/23/22 05/23/22 11:40 11:45 11:50 Temperature Pulse Rate 97 H 72 82 Respiratory Rate Blood Pressure O2 Sat by Pulse 98 99 100 Oximetry O2 Sat by Pulse Oximetry [ Bilateral] 05/23/22 05/23/22 05/23/22 11:55 12:00 12:05 Temperature Pulse Rate 94 H 87 87 Respiratory Rate Blood Pressure O2 Sat by Pulse 99 99 96 Oximetry O2 Sat by Pulse Oximetry [ Bilateral] 05/23/22 05/23/22 05/23/22 12:09 12:10 12:15 Temperature 98.1 F Pulse Rate 83 89 92 H Respiratory 20 Rate Blood Pressure 124/75 O2 Sat by Pulse 99 99 Oximetry O2 Sat by Pulse Oximetry [ Bilateral] 05/23/22 05/23/22 05/23/22 12:20 12:22 12:25 Temperature Pulse Rate 82 79 77 Respiratory Rate Blood Pressure O2 Sat by Pulse 99 86 98 Oximetry O2 Sat by Pulse Oximetry [ Bilateral] 05/23/22 05/23/22 05/23/22 12:30 12:35 12:39 Temperature Pulse Rate 81 83 91 H Respiratory Rate Blood Pressure 121/67 O2 Sat by Pulse 100 100 Oximetry O2 Sat by Pulse Oximetry [ Bilateral] 05/23/22 05/23/22 05/23/22 12:40 12:45 12:50 Temperature Pulse Rate 84 82 83 Respiratory Rate Blood Pressure O2 Sat by Pulse 100 100 100 Oximetry O2 Sat by Pulse Oximetry [ Bilateral] 05/23/22 05/23/22 05/23/22 12:55 13:00 13:05 Temperature Pulse Rate 86 85 81 Respiratory Rate Blood Pressure O2 Sat by Pulse 99 98 98 Oximetry O2 Sat by Pulse Oximetry [ Bilateral] 05/23/22 05/23/22 05/23/22 13:09 13:10 13:15 Temperature Pulse Rate 90 88 84 Respiratory Rate Blood Pressure 118/68 O2 Sat by Pulse 98 99 Oximetry O2 Sat by Pulse Oximetry [ Bilateral] 05/23/22 05/23/22 05/23/22 13:20 13:25 13:30 Temperature Pulse Rate 83 80 92 H Respiratory Rate Blood Pressure O2 Sat by Pulse 98 98 99 Oximetry O2 Sat by Pulse Oximetry [ Bilateral] 05/23/22 05/23/22 05/23/22 13:37 13:38 13:40 Temperature Pulse Rate 81 78 76 Respiratory Rate Blood Pressure 137/82 O2 Sat by Pulse 0 L 0 L Oximetry O2 Sat by Pulse Oximetry [ Bilateral] 05/23/22 05/23/22 05/23/22 13:43 13:48 13:53 Temperature Pulse Rate 75 73 77 Respiratory Rate Blood Pressure O2 Sat by Pulse 100 99 99 Oximetry O2 Sat by Pulse Oximetry [ Bilateral] 05/23/22 05/23/22 05/23/22 13:58 14:03 14:08 Temperature Pulse Rate 79 83 83 Respiratory Rate Blood Pressure O2 Sat by Pulse 100 100 100 Oximetry O2 Sat by Pulse Oximetry [ Bilateral] 05/23/22 05/23/22 05/23/22 14:11 14:13 14:18 Temperature Pulse Rate 79 80 87 Respiratory Rate Blood Pressure 134/77 O2 Sat by Pulse 100 100 Oximetry O2 Sat by Pulse Oximetry [ Bilateral] 05/23/22 05/23/22 05/23/22 14:23 14:28 14:34 Temperature Pulse Rate 87 90 85 Respiratory Rate Blood Pressure O2 Sat by Pulse 100 100 84 Oximetry O2 Sat by Pulse Oximetry [ Bilateral] 05/23/22 05/23/22 05/23/22 14:35 14:39 14:40 Temperature Pulse Rate 81 80 82 Respiratory Rate Blood Pressure 136/84 O2 Sat by Pulse 100 100 Oximetry O2 Sat by Pulse Oximetry [ Bilateral] 05/23/22 05/23/22 05/23/22 14:45 14:48 14:50 Temperature Pulse Rate 83 77 83 Respiratory Rate Blood Pressure 132/74 O2 Sat by Pulse 99 98 Oximetry O2 Sat by Pulse Oximetry [ Bilateral] 05/23/22 05/23/22 05/23/22 14:55 15:00 15:15 Temperature Pulse Rate 78 89 Respiratory Rate Blood Pressure O2 Sat by Pulse 99 96 89 Oximetry O2 Sat by Pulse Oximetry [ Bilateral] 05/23/22 05/23/22 05/23/22 15:16 15:21 15:26 Temperature Pulse Rate 85 81 81 Respiratory Rate Blood Pressure O2 Sat by Pulse 99 98 99 Oximetry O2 Sat by Pulse Oximetry [ Bilateral] 05/23/22 05/23/22 05/23/22 15:31 15:36 15:40 Temperature Pulse Rate 81 82 76 Respiratory Rate Blood Pressure 137/80 O2 Sat by Pulse 100 99 Oximetry O2 Sat by Pulse Oximetry [ Bilateral] 05/23/22 05/23/22 05/23/22 15:41 15:46 15:51 Temperature Pulse Rate 79 86 94 H Respiratory Rate Blood Pressure O2 Sat by Pulse 98 99 97 Oximetry O2 Sat by Pulse Oximetry [ Bilateral] 05/23/22 05/23/22 05/23/22 15:53 16:23 16:24 Temperature Pulse Rate 57 L 82 79 Respiratory Rate Blood Pressure O2 Sat by Pulse 91 80 L 80 L Oximetry O2 Sat by Pulse Oximetry [ Bilateral] 05/23/22 05/23/22 05/23/22 16:29 16:34 16:39 Temperature Pulse Rate 89 86 90 Respiratory Rate Blood Pressure O2 Sat by Pulse 91 99 100 Oximetry O2 Sat by Pulse Oximetry [ Bilateral] 05/23/22 05/23/22 05/23/22 16:44 16:49 16:54 Temperature Pulse Rate 82 86 84 Respiratory Rate Blood Pressure O2 Sat by Pulse 100 99 100 Oximetry O2 Sat by Pulse Oximetry [ Bilateral] 05/23/22 05/23/22 05/23/22 16:59 17:02 17:04 Temperature Pulse Rate 85 90 89 Respiratory Rate Blood Pressure O2 Sat by Pulse 100 93 99 Oximetry O2 Sat by Pulse Oximetry [ Bilateral] 05/23/22 17:09 Temperature Pulse Rate 90 Respiratory Rate Blood Pressure O2 Sat by Pulse 100 Oximetry O2 Sat by Pulse Oximetry [ Bilateral] - Exam Breasts: deferred Cardiovascular: Regular rate Lungs: Normal air movement FHR: category 1 Uterine Contraction Monitor Mode: External Uterine Contraction Frequency (min): 2.5 Uterine Contraction Pattern: Regular - Labs Labs: Abnormal Labs 05/23/22 05/23/22 05/23/22 00:35 00:35 09:10 RBC 3.00 L Hgb 8.8 L Hct 25.9 L Creatinine 0.5 L Lactate Dehydrogenase 207 H Urine Creatinine 59.2 H Urine Total Protein 12 H Laboratory Results - last 24 hr 05/23/22 05/23/22 05/23/22 00:35 00:35 00:35 WBC 9.1 RBC 3.00 L Hgb 8.8 L Hct 25.9 L MCV 86 MCH 29 MCHC 34 RDW 14.8 Plt Count 265 Creatinine 0.5 L Estimated GFR > 60 Uric Acid 3.5 AST 19 ALT 16 Lactate Dehydrogenase 207 H Urine Color Urine Turbidity Urine pH Ur Specific [place] Urine Protein Urine Glucose (UA) Urine Ketones Urine Blood Urine Nitrite Ur Reducing Substances Urine Bilirubin Urine Ictotest Urine Urobilinogen Ur Leukocyte Esterase Urine WBC (Auto) Urine RBC (Auto) U Epithel Cells (Auto) Urine Bacteria (Auto) Urine Creatinine Protein/Creatinin Ratio Urine Total Protein Syphilis IgG/IgM Ab SARS-CoV-2 (PCR) Blood Type O POSITIVE Antibody Screen Negative 05/23/22 05/23/22 05/23/22 01:19 09:10 09:10 WBC RBC Hgb Hct MCV MCH MCHC RDW Plt Count Creatinine Estimated GFR Uric Acid AST ALT Lactate Dehydrogenase Urine Color Yellow Urine Turbidity Hazy Urine pH 7.0 Ur Specific [place] 1.025 Urine Protein 30 mg/dl Urine Glucose (UA) Negative Urine Ketones Negative Urine Blood Trace Urine Nitrite Negative Ur Reducing Substances Not Reportable Urine Bilirubin Negative Urine Ictotest Not Reportable Urine Urobilinogen < 2.0 Ur Leukocyte Esterase Negative Urine WBC (Auto) 3.0 Urine RBC (Auto) 3.0 U Epithel Cells (Auto) 9.0 Urine Bacteria (Auto) 1+ Urine Creatinine 59.2 H Protein/Creatinin Ratio 0.20 Urine Total Protein 12 H Syphilis IgG/IgM Ab Nonreactive SARS-CoV-2 (PCR) Blood Type Antibody Screen 05/23/22 10:15 WBC RBC Hgb Hct MCV MCH MCHC RDW Plt Count Creatinine Estimated GFR Uric Acid AST ALT Lactate Dehydrogenase Urine Color Urine Turbidity Urine pH Ur Specific [place] Urine Protein Urine Glucose (UA) Urine Ketones Urine Blood Urine Nitrite Ur Reducing Substances Urine Bilirubin Urine Ictotest Urine Urobilinogen Ur Leukocyte Esterase Urine WBC (Auto) Urine RBC (Auto) U Epithel Cells (Auto) Urine Bacteria (Auto) Urine Creatinine Protein/Creatinin Ratio Urine Total Protein Syphilis IgG/IgM Ab SARS-CoV-2 (PCR) Negative Blood Type Antibody Screen
--- NOTE | 2022-05-23 19:36 | Progress Note ---
Assessment and Plan A: 26 y.o. @ 39.1 wks, IOL d/t cHTN. - Patient Problems (1) Chronic hypertension affecting Current Visit: Yes Status: Acute Plan to address problem: Continue to monitor blood pressures. Continue to monitor for s/sx of Pre-eclampsia. Continue IOL with Cervidil tonight. Will allow pt to shower and eat before Cervidil placement. - Category 1 monitor tracing before dinner. (2) with 39 completed weeks gestation Current Visit: Yes Status: Acute Subjective - Subjective Date of service: 05/23/22 Principal diagnosis: IUP @ 39.1, IOL d/t cHTN Interval history: Denies GALINDO, blurred vision, spots before her eyes, chest pain, shortness of breath, and upper abdominal pain. Discussed plan to monitor her baby, Patient reports: new complaints, movement normal, contractions, no loss of fluid, no vaginal bleeding Objective - Vital Signs Vital Signs: Vital Signs - 12hr 05/23/22 05/23/22 05/23/22 07:36 07:41 07:45 Temperature 97.9 F Pulse Rate 78 79 Respiratory 18 Rate Blood Pressure O2 Sat by Pulse 99 99 Oximetry O2 Sat by Pulse 98 Oximetry [ Bilateral] 05/23/22 05/23/22 05/23/22 07:46 07:47 07:51 Temperature Pulse Rate 75 79 75 Respiratory Rate Blood Pressure 136/84 O2 Sat by Pulse 97 99 Oximetry O2 Sat by Pulse Oximetry [ Bilateral] 05/23/22 05/23/22 05/23/22 07:56 08:03 08:08 Temperature Pulse Rate 96 H 98 H 84 Respiratory Rate Blood Pressure O2 Sat by Pulse 88 88 100 Oximetry O2 Sat by Pulse Oximetry [ Bilateral] 05/23/22 05/23/22 05/23/22 08:13 08:15 08:18 Temperature Pulse Rate 85 95 H 90 Respiratory Rate Blood Pressure O2 Sat by Pulse 99 82 L 100 Oximetry O2 Sat by Pulse Oximetry [ Bilateral] 05/23/22 05/23/22 05/23/22 08:23 08:28 08:33 Temperature Pulse Rate 97 H 81 82 Respiratory Rate Blood Pressure O2 Sat by Pulse 100 99 100 Oximetry O2 Sat by Pulse Oximetry [ Bilateral] 05/23/22 05/23/22 05/23/22 08:38 08:43 08:48 Temperature Pulse Rate 82 80 77 Respiratory Rate Blood Pressure 133/84 O2 Sat by Pulse 100 100 99 Oximetry O2 Sat by Pulse Oximetry [ Bilateral] 05/23/22 05/23/22 05/23/22 08:53 08:58 09:03 Temperature Pulse Rate 75 77 79 Respiratory Rate Blood Pressure O2 Sat by Pulse 100 100 100 Oximetry O2 Sat by Pulse Oximetry [ Bilateral] 05/23/22 05/23/22 05/23/22 09:08 09:09 09:13 Temperature Pulse Rate 86 85 90 Respiratory Rate Blood Pressure O2 Sat by Pulse 100 85 100 Oximetry O2 Sat by Pulse Oximetry [ Bilateral] 05/23/22 05/23/22 05/23/22 09:16 09:18 09:20 Temperature Pulse Rate 81 87 78 Respiratory Rate Blood Pressure 167/98 155/85 O2 Sat by Pulse 91 Oximetry O2 Sat by Pulse Oximetry [ Bilateral] 05/23/22 05/23/22 05/23/22 09:23 09:28 09:33 Temperature Pulse Rate 83 102 H 82 Respiratory Rate Blood Pressure O2 Sat by Pulse 100 100 100 Oximetry O2 Sat by Pulse Oximetry [ Bilateral] 05/23/22 05/23/22 05/23/22 09:38 09:43 09:58 Temperature Pulse Rate 86 73 38 L Respiratory Rate Blood Pressure O2 Sat by Pulse 99 100 83 L Oximetry O2 Sat by Pulse Oximetry [ Bilateral] 05/23/22 05/23/22 05/23/22 10:03 10:08 10:13 Temperature Pulse Rate 82 85 80 Respiratory Rate Blood Pressure O2 Sat by Pulse 100 99 100 Oximetry O2 Sat by Pulse Oximetry [ Bilateral] 05/23/22 05/23/22 05/23/22 10:16 10:18 10:19 Temperature Pulse Rate 88 82 84 Respiratory Rate Blood Pressure 126/78 119/73 O2 Sat by Pulse 100 Oximetry O2 Sat by Pulse Oximetry [ Bilateral] 05/23/22 05/23/22 05/23/22 10:23 10:28 10:33 Temperature Pulse Rate 80 81 82 Respiratory Rate Blood Pressure O2 Sat by Pulse 100 100 100 Oximetry O2 Sat by Pulse Oximetry [ Bilateral] 05/23/22 05/23/22 05/23/22 10:38 10:43 10:45 Temperature Pulse Rate 78 78 80 Respiratory Rate Blood Pressure 130/81 O2 Sat by Pulse 100 100 Oximetry O2 Sat by Pulse Oximetry [ Bilateral] 05/23/22 05/23/22 05/23/22 10:48 10:53 10:58 Temperature Pulse Rate 82 84 77 Respiratory Rate Blood Pressure 127/78 O2 Sat by Pulse 100 100 100 Oximetry O2 Sat by Pulse Oximetry [ Bilateral] 05/23/22 05/23/22 05/23/22 11:03 11:40 11:45 Temperature Pulse Rate 81 97 H 72 Respiratory Rate Blood Pressure O2 Sat by Pulse 100 98 99 Oximetry O2 Sat by Pulse Oximetry [ Bilateral] 05/23/22 05/23/22 05/23/22 11:50 11:55 12:00 Temperature Pulse Rate 82 94 H 87 Respiratory Rate Blood Pressure O2 Sat by Pulse 100 99 99 Oximetry O2 Sat by Pulse Oximetry [ Bilateral] 05/23/22 05/23/22 05/23/22 12:05 12:09 12:10 Temperature 98.1 F Pulse Rate 87 83 89 Respiratory 20 Rate Blood Pressure 124/75 O2 Sat by Pulse 96 99 Oximetry O2 Sat by Pulse Oximetry [ Bilateral] 05/23/22 05/23/22 05/23/22 12:15 12:20 12:22 Temperature Pulse Rate 92 H 82 79 Respiratory Rate Blood Pressure O2 Sat by Pulse 99 99 86 Oximetry O2 Sat by Pulse Oximetry [ Bilateral] 05/23/22 05/23/22 05/23/22 12:25 12:30 12:35 Temperature Pulse Rate 77 81 83 Respiratory Rate Blood Pressure O2 Sat by Pulse 98 100 100 Oximetry O2 Sat by Pulse Oximetry [ Bilateral] 05/23/22 05/23/22 05/23/22 12:39 12:40 12:45 Temperature Pulse Rate 91 H 84 82 Respiratory Rate Blood Pressure 121/67 O2 Sat by Pulse 100 100 Oximetry O2 Sat by Pulse Oximetry [ Bilateral] 05/23/22 05/23/22 05/23/22 12:50 12:55 13:00 Temperature Pulse Rate 83 86 85 Respiratory Rate Blood Pressure O2 Sat by Pulse 100 99 98 Oximetry O2 Sat by Pulse Oximetry [ Bilateral] 05/23/22 05/23/22 05/23/22 13:05 13:09 13:10 Temperature Pulse Rate 81 90 88 Respiratory Rate Blood Pressure 118/68 O2 Sat by Pulse 98 98 Oximetry O2 Sat by Pulse Oximetry [ Bilateral] 05/23/22 05/23/22 05/23/22 13:15 13:20 13:25 Temperature Pulse Rate 84 83 80 Respiratory Rate Blood Pressure O2 Sat by Pulse 99 98 98 Oximetry O2 Sat by Pulse Oximetry [ Bilateral] 05/23/22 05/23/22 05/23/22 13:30 13:37 13:38 Temperature Pulse Rate 92 H 81 78 Respiratory Rate Blood Pressure O2 Sat by Pulse 99 0 L 0 L Oximetry O2 Sat by Pulse Oximetry [ Bilateral] 05/23/22 05/23/22 05/23/22 13:40 13:43 13:48 Temperature Pulse Rate 76 75 73 Respiratory Rate Blood Pressure 137/82 O2 Sat by Pulse 100 99 Oximetry O2 Sat by Pulse Oximetry [ Bilateral] 05/23/22 05/23/22 05/23/22 13:53 13:58 14:03 Temperature Pulse Rate 77 79 83 Respiratory Rate Blood Pressure O2 Sat by Pulse 99 100 100 Oximetry O2 Sat by Pulse Oximetry [ Bilateral] 05/23/22 05/23/22 05/23/22 14:08 14:11 14:13 Temperature Pulse Rate 83 79 80 Respiratory Rate Blood Pressure 134/77 O2 Sat by Pulse 100 100 Oximetry O2 Sat by Pulse Oximetry [ Bilateral] 05/23/22 05/23/22 05/23/22 14:18 14:23 14:28 Temperature Pulse Rate 87 87 90 Respiratory Rate Blood Pressure O2 Sat by Pulse 100 100 100 Oximetry O2 Sat by Pulse Oximetry [ Bilateral] 05/23/22 05/23/22 05/23/22 14:34 14:35 14:39 Temperature Pulse Rate 85 81 80 Respiratory Rate Blood Pressure 136/84 O2 Sat by Pulse 84 100 Oximetry O2 Sat by Pulse Oximetry [ Bilateral] 05/23/22 05/23/22 05/23/22 14:40 14:45 14:48 Temperature Pulse Rate 82 83 77 Respiratory Rate Blood Pressure 132/74 O2 Sat by Pulse 100 99 Oximetry O2 Sat by Pulse Oximetry [ Bilateral] 05/23/22 05/23/22 05/23/22 14:50 14:55 15:00 Temperature Pulse Rate 83 78 89 Respiratory Rate Blood Pressure O2 Sat by Pulse 98 99 96 Oximetry O2 Sat by Pulse Oximetry [ Bilateral] 05/23/22 05/23/22 05/23/22 15:15 15:16 15:21 Temperature Pulse Rate 85 81 Respiratory Rate Blood Pressure O2 Sat by Pulse 89 99 98 Oximetry O2 Sat by Pulse Oximetry [ Bilateral] 05/23/22 05/23/22 05/23/22 15:26 15:31 15:36 Temperature Pulse Rate 81 81 82 Respiratory Rate Blood Pressure O2 Sat by Pulse 99 100 99 Oximetry O2 Sat by Pulse Oximetry [ Bilateral] 05/23/22 05/23/22 05/23/22 15:40 15:41 15:46 Temperature Pulse Rate 76 79 86 Respiratory Rate Blood Pressure 137/80 O2 Sat by Pulse 98 99 Oximetry O2 Sat by Pulse Oximetry [ Bilateral] 05/23/22 05/23/22 05/23/22 15:51 15:53 16:23 Temperature Pulse Rate 94 H 57 L 82 Respiratory Rate Blood Pressure O2 Sat by Pulse 97 91 80 L Oximetry O2 Sat by Pulse Oximetry [ Bilateral] 05/23/22 05/23/22 05/23/22 16:24 16:29 16:34 Temperature Pulse Rate 79 89 86 Respiratory Rate Blood Pressure O2 Sat by Pulse 80 L 91 99 Oximetry O2 Sat by Pulse Oximetry [ Bilateral] 05/23/22 05/23/22 05/23/22 16:39 16:44 16:49 Temperature Pulse Rate 90 82 86 Respiratory Rate Blood Pressure O2 Sat by Pulse 100 100 99 Oximetry O2 Sat by Pulse Oximetry [ Bilateral] 05/23/22 05/23/22 05/23/22 16:54 16:59 17:02 Temperature Pulse Rate 84 85 90 Respiratory Rate Blood Pressure O2 Sat by Pulse 100 100 93 Oximetry O2 Sat by Pulse Oximetry [ Bilateral] 05/23/22 05/23/22 05/23/22 17:04 17:09 17:14 Temperature Pulse Rate 89 90 83 Respiratory Rate Blood Pressure O2 Sat by Pulse 99 100 99 Oximetry O2 Sat by Pulse Oximetry [ Bilateral] 05/23/22 05/23/22 05/23/22 17:19 17:24 17:25 Temperature Pulse Rate 84 82 88 Respiratory Rate Blood Pressure O2 Sat by Pulse 100 99 92 Oximetry O2 Sat by Pulse Oximetry [ Bilateral] 05/23/22 05/23/22 05/23/22 17:29 17:34 17:39 Temperature Pulse Rate 91 H 84 83 Respiratory Rate Blood Pressure O2 Sat by Pulse 99 100 100 Oximetry O2 Sat by Pulse Oximetry [ Bilateral] 05/23/22 05/23/22 05/23/22 17:44 17:49 17:53 Temperature Pulse Rate 85 88 91 H Respiratory Rate Blood Pressure O2 Sat by Pulse 100 100 87 Oximetry O2 Sat by Pulse Oximetry [ Bilateral] 05/23/22 05/23/22 05/23/22 17:54 17:59 18:04 Temperature Pulse Rate 77 83 83 Respiratory Rate Blood Pressure O2 Sat by Pulse 99 100 100 Oximetry O2 Sat by Pulse Oximetry [ Bilateral] 05/23/22 05/23/22 05/23/22 18:09 18:14 18:19 Temperature Pulse Rate 86 88 88 Respiratory Rate Blood Pressure O2 Sat by Pulse 100 100 98 Oximetry O2 Sat by Pulse Oximetry [ Bilateral] 05/23/22 05/23/22 05/23/22 18:24 18:33 18:34 Temperature Pulse Rate 77 86 86 Respiratory Rate Blood Pressure O2 Sat by Pulse 92 80 L 97 Oximetry O2 Sat by Pulse Oximetry [ Bilateral] 05/23/22 05/23/22 05/23/22 18:39 18:44 18:49 Temperature Pulse Rate 77 79 82 Respiratory Rate Blood Pressure 143/77 O2 Sat by Pulse 100 99 100 Oximetry O2 Sat by Pulse Oximetry [ Bilateral] 05/23/22 05/23/22 05/23/22 18:54 18:59 19:04 Temperature Pulse Rate 76 77 83 Respiratory Rate Blood Pressure O2 Sat by Pulse 100 99 99 Oximetry O2 Sat by Pulse Oximetry [ Bilateral] 05/23/22 05/23/22 05/23/22 19:09 19:10 19:14 Temperature Pulse Rate 79 79 81 Respiratory Rate Blood Pressure 141/77 O2 Sat by Pulse 100 99 Oximetry O2 Sat by Pulse Oximetry [ Bilateral] 05/23/22 05/23/22 19:19 19:24 Temperature Pulse Rate 92 H 81 Respiratory Rate Blood Pressure O2 Sat by Pulse 98 99 Oximetry O2 Sat by Pulse Oximetry [ Bilateral] - Exam Cardiovascular: Regular rate Lungs: Normal air movement Vulva: both: normal FHR: category 1 Uterine Contraction Monitor Mode: External Cervical Dilatation: 2 Cervical Effacement Percentage: 50 station: -1 Uterine Contraction Pattern: Regular Uterine Tone Measurement Phase: Resting Uterine Contraction Intensity: Moderate - Labs Labs: Abnormal Labs 05/23/22 05/23/22 05/23/22 00:35 00:35 09:10 RBC 3.00 L Hgb 8.8 L Hct 25.9 L Creatinine 0.5 L Lactate Dehydrogenase 207 H Urine Creatinine 59.2 H Urine Total Protein 12 H Laboratory Results - last 24 hr 05/23/22 05/23/22 05/23/22 00:35 00:35 00:35 WBC 9.1 RBC 3.00 L Hgb 8.8 L Hct 25.9 L MCV 86 MCH 29 MCHC 34 RDW 14.8 Plt Count 265 Creatinine 0.5 L Estimated GFR > 60 Uric Acid 3.5 AST 19 ALT 16 Lactate Dehydrogenase 207 H Urine Color Urine Turbidity Urine pH Ur Specific [place] Urine Protein Urine Glucose (UA) Urine Ketones Urine Blood Urine Nitrite Ur Reducing Substances Urine Bilirubin Urine Ictotest Urine Urobilinogen Ur Leukocyte Esterase Urine WBC (Auto) Urine RBC (Auto) U Epithel Cells (Auto) Urine Bacteria (Auto) Urine Creatinine Protein/Creatinin Ratio Urine Total Protein Syphilis IgG/IgM Ab SARS-CoV-2 (PCR) Blood Type O POSITIVE Antibody Screen Negative 05/23/22 05/23/22 05/23/22 01:19 09:10 09:10 WBC RBC Hgb Hct MCV MCH MCHC RDW Plt Count Creatinine Estimated GFR Uric Acid AST ALT Lactate Dehydrogenase Urine Color Yellow Urine Turbidity Hazy Urine pH 7.0 Ur Specific [place] 1.025 Urine Protein 30 mg/dl Urine Glucose (UA) Negative Urine Ketones Negative Urine Blood Trace Urine Nitrite Negative Ur Reducing Substances Not Reportable Urine Bilirubin Negative Urine Ictotest Not Reportable Urine Urobilinogen < 2.0 Ur Leukocyte Esterase Negative Urine WBC (Auto) 3.0 Urine RBC (Auto) 3.0 U Epithel Cells (Auto) 9.0 Urine Bacteria (Auto) 1+ Urine Creatinine 59.2 H Protein/Creatinin Ratio 0.20 Urine Total Protein 12 H Syphilis IgG/IgM Ab Nonreactive SARS-CoV-2 (PCR) Blood Type Antibody Screen 05/23/22 10:15 WBC RBC Hgb Hct MCV MCH MCHC RDW Plt Count Creatinine Estimated GFR Uric Acid AST ALT Lactate Dehydrogenase Urine Color Urine Turbidity Urine pH Ur Specific [place] Urine Protein Urine Glucose (UA) Urine Ketones Urine Blood Urine Nitrite Ur Reducing Substances Urine Bilirubin Urine Ictotest Urine Urobilinogen Ur Leukocyte Esterase Urine WBC (Auto) Urine RBC (Auto) U Epithel Cells (Auto) Urine Bacteria (Auto) Urine Creatinine Protein/Creatinin Ratio Urine Total Protein Syphilis IgG/IgM Ab SARS-CoV-2 (PCR) Negative Blood Type Antibody Screen
[2022-05-23] MEDS ORDERED: DINOPROSTONE 10 MG VAG SUPP VG SCH (21:00)
[2022-05-23] MEDS: AMPICILLIN/NS 1 GM/50 ML 1 GM/50 ML BAG IV SCH (23:01)
[2022-05-24] MEDS: AMPICILLIN/NS 1 GM/50 ML 1 GM/50 ML BAG IV SCH ×4 (06:15→20:11)
--- NOTE | 2022-05-24 06:27 | Progress Note ---
Assessment and Plan A: 26 y.o. @ 39.2 wks IOL d/t cHTN. - Patient Problems (1) Chronic hypertension affecting Current Visit: Yes Status: Acute Plan to address problem: Continue with IOL. Cervidil to be removed at 11am. Continue to monitor blood pressures. continue to monitor for s/sx of Pre-eclampsia. (2) with 39 completed weeks gestation Current Visit: Yes Status: Acute Plan to address problem: Continue to monitor status through EFM. (3) GBS (group B streptococcus) infection Current Visit: Yes Status: Acute Plan to address problem: Antibiotics while in labor. Subjective - Subjective Date of service: 05/24/22 Principal diagnosis: IUP @ 39.2, IOL d/t cHTN Interval history: Pt denies GALINDO, blurred vision, spots before her eyes, chest pain, shortness of breath, and upper abdominal pain. Patient reports: new complaints, movement normal, contractions, no loss of fluid, no vaginal bleeding Objective - Vital Signs Vital Signs: Vital Signs - 12hr 05/23/22 05/23/22 05/23/22 18:24 18:33 18:34 Temperature Pulse Rate 77 86 86 Blood Pressure Blood Pressure [Left] O2 Sat by Pulse 92 80 L 97 Oximetry O2 Sat by Pulse Oximetry [ Bilateral] 05/23/22 05/23/22 05/23/22 18:39 18:44 18:49 Temperature Pulse Rate 77 79 82 Blood Pressure 143/77 Blood Pressure [Left] O2 Sat by Pulse 100 99 100 Oximetry O2 Sat by Pulse Oximetry [ Bilateral] 05/23/22 05/23/22 05/23/22 18:54 18:59 19:04 Temperature Pulse Rate 76 77 83 Blood Pressure Blood Pressure [Left] O2 Sat by Pulse 100 99 99 Oximetry O2 Sat by Pulse Oximetry [ Bilateral] 05/23/22 05/23/22 05/23/22 19:09 19:10 19:14 Temperature Pulse Rate 79 79 81 Blood Pressure 141/77 Blood Pressure [Left] O2 Sat by Pulse 100 99 Oximetry O2 Sat by Pulse Oximetry [ Bilateral] 05/23/22 05/23/22 05/23/22 19:19 19:24 19:53 Temperature 99.0 F Pulse Rate 92 H 81 Blood Pressure Blood Pressure 141/77 [Left] O2 Sat by Pulse 98 99 Oximetry O2 Sat by Pulse Oximetry [ Bilateral] 05/23/22 05/23/22 05/23/22 19:55 20:17 20:20 Temperature Pulse Rate 86 Blood Pressure Blood Pressure [Left] O2 Sat by Pulse 93 100 Oximetry O2 Sat by Pulse 99 Oximetry [ Bilateral] 05/23/22 05/23/22 05/23/22 20:25 20:28 20:30 Temperature Pulse Rate 78 87 90 Blood Pressure 141/71 Blood Pressure [Left] O2 Sat by Pulse 100 99 Oximetry O2 Sat by Pulse Oximetry [ Bilateral] 05/23/22 05/23/22 05/23/22 20:35 20:40 20:45 Temperature Pulse Rate 85 77 83 Blood Pressure Blood Pressure [Left] O2 Sat by Pulse 100 100 100 Oximetry O2 Sat by Pulse Oximetry [ Bilateral] 05/23/22 05/23/22 05/23/22 20:50 20:53 20:55 Temperature Pulse Rate 79 77 79 Blood Pressure 131/73 Blood Pressure [Left] O2 Sat by Pulse 100 100 Oximetry O2 Sat by Pulse Oximetry [ Bilateral] 05/23/22 05/23/22 05/23/22 21:00 21:05 21:10 Temperature Pulse Rate 84 86 75 Blood Pressure 134/69 Blood Pressure [Left] O2 Sat by Pulse 100 100 100 Oximetry O2 Sat by Pulse Oximetry [ Bilateral] 05/23/22 05/23/22 05/23/22 21:15 21:20 21:25 Temperature Pulse Rate 77 74 75 Blood Pressure Blood Pressure [Left] O2 Sat by Pulse 100 100 100 Oximetry O2 Sat by Pulse Oximetry [ Bilateral] 05/23/22 05/23/22 05/23/22 21:30 21:35 21:39 Temperature Pulse Rate 75 72 76 Blood Pressure 121/64 Blood Pressure [Left] O2 Sat by Pulse 100 100 Oximetry O2 Sat by Pulse Oximetry [ Bilateral] 05/23/22 05/23/22 05/23/22 21:40 21:45 21:50 Temperature Pulse Rate 81 81 77 Blood Pressure Blood Pressure [Left] O2 Sat by Pulse 100 100 100 Oximetry O2 Sat by Pulse Oximetry [ Bilateral] 05/23/22 05/23/22 05/23/22 21:55 22:05 22:09 Temperature Pulse Rate 80 85 75 Blood Pressure 120/62 Blood Pressure [Left] O2 Sat by Pulse 100 100 Oximetry O2 Sat by Pulse Oximetry [ Bilateral] 05/23/22 05/23/22 05/23/22 22:10 22:15 22:20 Temperature Pulse Rate 75 78 77 Blood Pressure Blood Pressure [Left] O2 Sat by Pulse 100 100 100 Oximetry O2 Sat by Pulse Oximetry [ Bilateral] 05/23/22 05/23/22 05/23/22 22:25 22:30 22:35 Temperature Pulse Rate 71 72 74 Blood Pressure Blood Pressure [Left] O2 Sat by Pulse 100 100 100 Oximetry O2 Sat by Pulse Oximetry [ Bilateral] 05/23/22 05/23/22 05/23/22 22:39 22:40 22:45 Temperature Pulse Rate 74 75 90 Blood Pressure 113/59 Blood Pressure [Left] O2 Sat by Pulse 100 100 Oximetry O2 Sat by Pulse Oximetry [ Bilateral] 05/23/22 05/23/22 05/23/22 22:50 22:55 23:00 Temperature Pulse Rate 85 78 79 Blood Pressure Blood Pressure [Left] O2 Sat by Pulse 100 99 99 Oximetry O2 Sat by Pulse Oximetry [ Bilateral] 05/23/22 05/23/22 05/23/22 23:05 23:09 23:10 Temperature Pulse Rate 107 H 77 78 Blood Pressure 129/72 Blood Pressure [Left] O2 Sat by Pulse 100 100 Oximetry O2 Sat by Pulse Oximetry [ Bilateral] 05/23/22 05/23/22 05/23/22 23:15 23:20 23:25 Temperature Pulse Rate 79 76 77 Blood Pressure Blood Pressure [Left] O2 Sat by Pulse 100 99 98 Oximetry O2 Sat by Pulse Oximetry [ Bilateral] 05/23/22 05/23/22 05/23/22 23:30 23:35 23:40 Temperature Pulse Rate 77 77 73 Blood Pressure 121/67 Blood Pressure [Left] O2 Sat by Pulse 99 98 98 Oximetry O2 Sat by Pulse Oximetry [ Bilateral] 05/23/22 05/23/22 05/23/22 23:41 23:45 23:50 Temperature 98.6 F Pulse Rate 76 76 Blood Pressure Blood Pressure [Left] O2 Sat by Pulse 98 98 Oximetry O2 Sat by Pulse Oximetry [ Bilateral] 05/23/22 05/24/22 05/24/22 23:55 00:00 00:05 Temperature Pulse Rate 76 77 77 Blood Pressure Blood Pressure [Left] O2 Sat by Pulse 98 98 98 Oximetry O2 Sat by Pulse Oximetry [ Bilateral] 05/24/22 05/24/22 05/24/22 00:09 00:10 00:15 Temperature Pulse Rate 71 76 80 Blood Pressure 126/68 Blood Pressure [Left] O2 Sat by Pulse 98 97 Oximetry O2 Sat by Pulse Oximetry [ Bilateral] 05/24/22 05/24/22 05/24/22 00:20 00:22 00:25 Temperature Pulse Rate 87 88 76 Blood Pressure Blood Pressure [Left] O2 Sat by Pulse 98 94 99 Oximetry O2 Sat by Pulse Oximetry [ Bilateral] 05/24/22 05/24/22 05/24/22 00:30 00:35 00:39 Temperature Pulse Rate 71 72 71 Blood Pressure 126/72 Blood Pressure [Left] O2 Sat by Pulse 99 100 Oximetry O2 Sat by Pulse Oximetry [ Bilateral] 05/24/22 05/24/22 05/24/22 00:40 00:45 00:50 Temperature Pulse Rate 72 71 82 Blood Pressure Blood Pressure [Left] O2 Sat by Pulse 99 100 100 Oximetry O2 Sat by Pulse Oximetry [ Bilateral] 05/24/22 05/24/22 05/24/22 00:55 01:00 01:05 Temperature Pulse Rate 72 72 83 Blood Pressure Blood Pressure [Left] O2 Sat by Pulse 100 100 100 Oximetry O2 Sat by Pulse Oximetry [ Bilateral] 05/24/22 05/24/22 05/24/22 01:15 01:20 01:25 Temperature Pulse Rate 85 78 80 Blood Pressure Blood Pressure [Left] O2 Sat by Pulse 100 100 100 Oximetry O2 Sat by Pulse Oximetry [ Bilateral] 05/24/22 05/24/22 05/24/22 01:30 01:35 01:40 Temperature Pulse Rate 74 78 78 Blood Pressure Blood Pressure [Left] O2 Sat by Pulse 100 100 100 Oximetry O2 Sat by Pulse Oximetry [ Bilateral] 05/24/22 05/24/22 05/24/22 01:45 01:50 01:55 Temperature Pulse Rate 76 82 80 Blood Pressure Blood Pressure [Left] O2 Sat by Pulse 100 100 100 Oximetry O2 Sat by Pulse Oximetry [ Bilateral] 05/24/22 05/24/22 05/24/22 02:00 02:03 02:05 Temperature Pulse Rate 81 77 77 Blood Pressure 114/57 Blood Pressure [Left] O2 Sat by Pulse 100 100 Oximetry O2 Sat by Pulse Oximetry [ Bilateral] 05/24/22 05/24/22 05/24/22 02:09 02:10 02:15 Temperature Pulse Rate 75 77 78 Blood Pressure 110/57 Blood Pressure [Left] O2 Sat by Pulse 100 100 Oximetry O2 Sat by Pulse Oximetry [ Bilateral] 05/24/22 05/24/22 05/24/22 02:20 02:25 02:30 Temperature Pulse Rate 79 87 77 Blood Pressure Blood Pressure [Left] O2 Sat by Pulse 100 100 100 Oximetry O2 Sat by Pulse Oximetry [ Bilateral] 05/24/22 05/24/22 05/24/22 02:35 02:39 02:40 Temperature Pulse Rate 79 82 79 Blood Pressure 112/60 Blood Pressure [Left] O2 Sat by Pulse 100 100 Oximetry O2 Sat by Pulse Oximetry [ Bilateral] 05/24/22 05/24/22 05/24/22 02:45 02:50 02:55 Temperature Pulse Rate 84 89 85 Blood Pressure Blood Pressure [Left] O2 Sat by Pulse 100 100 100 Oximetry O2 Sat by Pulse Oximetry [ Bilateral] 05/24/22 05/24/22 05/24/22 03:00 03:05 03:10 Temperature Pulse Rate 76 81 78 Blood Pressure 127/67 Blood Pressure [Left] O2 Sat by Pulse 99 100 100 Oximetry O2 Sat by Pulse Oximetry [ Bilateral] 05/24/22 05/24/22 05/24/22 03:15 03:20 03:25 Temperature Pulse Rate 79 81 81 Blood Pressure Blood Pressure [Left] O2 Sat by Pulse 100 100 100 Oximetry O2 Sat by Pulse Oximetry [ Bilateral] 05/24/22 05/24/22 05/24/22 03:30 03:35 03:39 Temperature Pulse Rate 82 81 82 Blood Pressure 120/69 Blood Pressure [Left] O2 Sat by Pulse 100 100 Oximetry O2 Sat by Pulse Oximetry [ Bilateral] 05/24/22 05/24/22 05/24/22 03:40 03:45 03:50 Temperature Pulse Rate 80 82 80 Blood Pressure Blood Pressure [Left] O2 Sat by Pulse 100 100 100 Oximetry O2 Sat by Pulse Oximetry [ Bilateral] 05/24/22 05/24/22 05/24/22 03:55 04:00 04:05 Temperature Pulse Rate 83 84 86 Blood Pressure Blood Pressure [Left] O2 Sat by Pulse 99 99 99 Oximetry O2 Sat by Pulse Oximetry [ Bilateral] 05/24/22 05/24/22 05/24/22 04:09 04:10 04:24 Temperature Pulse Rate 81 83 92 H Blood Pressure 124/70 Blood Pressure [Left] O2 Sat by Pulse 99 100 Oximetry O2 Sat by Pulse Oximetry [ Bilateral] 05/24/22 05/24/22 05/24/22 04:29 04:34 04:38 Temperature Pulse Rate 81 81 78 Blood Pressure 121/79 Blood Pressure [Left] O2 Sat by Pulse 99 100 Oximetry O2 Sat by Pulse Oximetry [ Bilateral] 05/24/22 05/24/22 05/24/22 04:39 04:44 04:49 Temperature 97.9 F Pulse Rate 77 80 77 Blood Pressure Blood Pressure [Left] O2 Sat by Pulse 100 100 100 Oximetry O2 Sat by Pulse Oximetry [ Bilateral] 05/24/22 05/24/22 05/24/22 04:54 04:59 05:04 Temperature Pulse Rate 75 79 76 Blood Pressure Blood Pressure [Left] O2 Sat by Pulse 100 100 100 Oximetry O2 Sat by Pulse Oximetry [ Bilateral] 05/24/22 05/24/22 05/24/22 05:09 05:14 05:19 Temperature Pulse Rate 79 80 81 Blood Pressure 130/76 Blood Pressure [Left] O2 Sat by Pulse 100 100 100 Oximetry O2 Sat by Pulse Oximetry [ Bilateral] 05/24/22 05/24/22 05/24/22 05:30 05:35 05:39 Temperature Pulse Rate 79 78 76 Blood Pressure 124/66 Blood Pressure [Left] O2 Sat by Pulse 100 100 Oximetry O2 Sat by Pulse Oximetry [ Bilateral] 05/24/22 05/24/22 05/24/22 05:40 05:45 05:50 Temperature Pulse Rate 74 76 75 Blood Pressure Blood Pressure [Left] O2 Sat by Pulse 100 100 100 Oximetry O2 Sat by Pulse Oximetry [ Bilateral] 05/24/22 05/24/22 05/24/22 05:55 06:00 06:05 Temperature Pulse Rate 75 75 76 Blood Pressure Blood Pressure [Left] O2 Sat by Pulse 100 100 100 Oximetry O2 Sat by Pulse Oximetry [ Bilateral] 05/24/22 05/24/22 05/24/22 06:10 06:11 06:15 Temperature Pulse Rate 77 76 82 Blood Pressure 127/68 Blood Pressure [Left] O2 Sat by Pulse 100 100 Oximetry O2 Sat by Pulse Oximetry [ Bilateral] - Exam Narrative Exam: Cervical exam with Cervidil placement /-3. Cardiovascular: Regular rate Lungs: Normal air movement Abdomen: Present: normal appearance, soft Uterus: Present: normal FHR: category 1 Uterine Contraction Monitor Mode: External Uterine Contraction Pattern: Irregular Uterine Tone Measurement Phase: Resting Uterine Contraction Intensity: Mild - Labs Labs: Abnormal Labs 05/23/22 05/23/22 05/23/22 00:35 00:35 09:10 RBC 3.00 L Hgb 8.8 L Hct 25.9 L Creatinine 0.5 L Lactate Dehydrogenase 207 H Urine Creatinine 59.2 H Urine Total Protein 12 H Laboratory Results - last 24 hr 05/23/22 05/23/22 05/23/22 09:10 09:10 10:15 Urine Color Yellow Urine Turbidity Hazy Urine pH 7.0 Ur Specific [place] 1.025 Urine Protein 30 mg/dl Urine Glucose (UA) Negative Urine Ketones Negative Urine Blood Trace Urine Nitrite Negative Ur Reducing Substances Not Reportable Urine Bilirubin Negative Urine Ictotest Not Reportable Urine Urobilinogen < 2.0 Ur Leukocyte Esterase Negative Urine WBC (Auto) 3.0 Urine RBC (Auto) 3.0 U Epithel Cells (Auto) 9.0 Urine Bacteria (Auto) 1+ Urine Creatinine 59.2 H Protein/Creatinin Ratio 0.20 Urine Total Protein 12 H SARS-CoV-2 (PCR) Negative
--- NOTE | 2022-05-24 06:41 | Event Note ---
Date: 05/24/22 (chest pain) FOC came to desk to inform staff that patient was having some chest pain/tightness. Upon assessment, lung sounds clear, heart rate regular. VSS with BP 129/80, HR 76, 100% on room air. Will order EKG and labs. RN aware of orders and plan.
[2022-05-24] MEDS: LACTATED RINGERS 1,000 ML IV SCH ×2 (08:28→23:54)
[2022-05-24 08:34] LABS: Alanine Aminotransferase 14 units/L (7-56); Albumin 3.4 g/dL (3.9-5); Blood Urea Nitrogen 6 mg/dL (7-17); Calcium 8.8 mg/dL (8.4-10.2); Hemolysis Index 12
[2022-05-24 08:47] LABS: BUN/Creatinine Ratio 15
--- NOTE | 2022-05-24 09:34 | XRay Report ---
CHEST 1 VIEW 05/24/2022 8:19 AM INDICATION / CLINICAL INFORMATION: chest pain. COMPARISON: None available. FINDINGS: SUPPORT DEVICES: None. HEART / MEDIASTINUM: No significant abnormality. LUNGS / PLEURA: No significant pulmonary or pleural abnormality. No pneumothorax. ADDITIONAL FINDINGS: No significant additional findings. IMPRESSION: 1. No acute findings. Signer Name: Maxwell Mcnamara MD Signed: 05/24/2022 9:29 AM Workstation Name: [id number]
--- NOTE | 2022-05-24 10:56 | Progress Note ---
Assessment and Plan - Patient Problems (1) Chronic hypertension affecting Current Visit: Yes Status: Acute Plan to address problem: Patient just finishing her a.m. care get back into her bed. Patient without complaints. Discussed with the patient and significant other the nature of serial induction. Questions answered. Discussed the risks of and. indications for operative intervention. Will continue induction until this evening. At that time reassess if labor has not started we'll stop induction. We'll allow to eat and possibly repeat Cervidil this evening. If labor is progressing or other indications to continue induction we'll do so at that time. Subjective - Subjective Principal diagnosis: IUP @ 39.2, IOL d/t cHTN Patient reports: new complaints, movement normal, no loss of fluid, no vaginal bleeding Objective - Vital Signs Vital Signs: Vital Signs - 12hr 05/23/22 05/23/22 05/23/22 22:55 23:00 23:05 Temperature Pulse Rate 78 79 107 H Respiratory Rate Blood Pressure O2 Sat by Pulse 99 99 100 Oximetry 05/23/22 05/23/22 05/23/22 23:09 23:10 23:15 Temperature Pulse Rate 77 78 79 Respiratory Rate Blood Pressure 129/72 O2 Sat by Pulse 100 100 Oximetry 05/23/22 05/23/22 05/23/22 23:20 23:25 23:30 Temperature Pulse Rate 76 77 77 Respiratory Rate Blood Pressure O2 Sat by Pulse 99 98 99 Oximetry 05/23/22 05/23/22 05/23/22 23:35 23:40 23:41 Temperature 98.6 F Pulse Rate 77 73 Respiratory Rate Blood Pressure 121/67 O2 Sat by Pulse 98 98 Oximetry 05/23/22 05/23/22 05/23/22 23:45 23:50 23:55 Temperature Pulse Rate 76 76 76 Respiratory Rate Blood Pressure O2 Sat by Pulse 98 98 98 Oximetry 05/24/22 05/24/22 05/24/22 00:00 00:05 00:09 Temperature Pulse Rate 77 77 71 Respiratory Rate Blood Pressure 126/68 O2 Sat by Pulse 98 98 Oximetry 05/24/22 05/24/22 05/24/22 00:10 00:15 00:20 Temperature Pulse Rate 76 80 87 Respiratory Rate Blood Pressure O2 Sat by Pulse 98 97 98 Oximetry 05/24/22 05/24/22 05/24/22 00:22 00:25 00:30 Temperature Pulse Rate 88 76 71 Respiratory Rate Blood Pressure O2 Sat by Pulse 94 99 99 Oximetry 05/24/22 05/24/22 05/24/22 00:35 00:39 00:40 Temperature Pulse Rate 72 71 72 Respiratory Rate Blood Pressure 126/72 O2 Sat by Pulse 100 99 Oximetry 05/24/22 05/24/22 05/24/22 00:45 00:50 00:55 Temperature Pulse Rate 71 82 72 Respiratory Rate Blood Pressure O2 Sat by Pulse 100 100 100 Oximetry 05/24/22 05/24/22 05/24/22 01:00 01:05 01:15 Temperature Pulse Rate 72 83 85 Respiratory Rate Blood Pressure O2 Sat by Pulse 100 100 100 Oximetry 05/24/22 05/24/22 05/24/22 01:20 01:25 01:30 Temperature Pulse Rate 78 80 74 Respiratory Rate Blood Pressure O2 Sat by Pulse 100 100 100 Oximetry 05/24/22 05/24/22 05/24/22 01:35 01:40 01:45 Temperature Pulse Rate 78 78 76 Respiratory Rate Blood Pressure O2 Sat by Pulse 100 100 100 Oximetry 05/24/22 05/24/22 05/24/22 01:50 01:55 02:00 Temperature Pulse Rate 82 80 81 Respiratory Rate Blood Pressure O2 Sat by Pulse 100 100 100 Oximetry 05/24/22 05/24/22 05/24/22 02:03 02:05 02:09 Temperature Pulse Rate 77 77 75 Respiratory Rate Blood Pressure 114/57 110/57 O2 Sat by Pulse 100 Oximetry 05/24/22 05/24/22 05/24/22 02:10 02:15 02:20 Temperature Pulse Rate 77 78 79 Respiratory Rate Blood Pressure O2 Sat by Pulse 100 100 100 Oximetry 05/24/22 05/24/22 05/24/22 02:25 02:30 02:35 Temperature Pulse Rate 87 77 79 Respiratory Rate Blood Pressure O2 Sat by Pulse 100 100 100 Oximetry 05/24/22 05/24/22 05/24/22 02:39 02:40 02:45 Temperature Pulse Rate 82 79 84 Respiratory Rate Blood Pressure 112/60 O2 Sat by Pulse 100 100 Oximetry 05/24/22 05/24/22 05/24/22 02:50 02:55 03:00 Temperature Pulse Rate 89 85 76 Respiratory Rate Blood Pressure O2 Sat by Pulse 100 100 99 Oximetry 05/24/22 05/24/22 05/24/22 03:05 03:10 03:15 Temperature Pulse Rate 81 78 79 Respiratory Rate Blood Pressure 127/67 O2 Sat by Pulse 100 100 100 Oximetry 05/24/22 05/24/22 05/24/22 03:20 03:25 03:30 Temperature Pulse Rate 81 81 82 Respiratory Rate Blood Pressure O2 Sat by Pulse 100 100 100 Oximetry 05/24/22 05/24/22 05/24/22 03:35 03:39 03:40 Temperature Pulse Rate 81 82 80 Respiratory Rate Blood Pressure 120/69 O2 Sat by Pulse 100 100 Oximetry 05/24/22 05/24/22 05/24/22 03:45 03:50 03:55 Temperature Pulse Rate 82 80 83 Respiratory Rate Blood Pressure O2 Sat by Pulse 100 100 99 Oximetry 05/24/22 05/24/22 05/24/22 04:00 04:05 04:09 Temperature Pulse Rate 84 86 81 Respiratory Rate Blood Pressure 124/70 O2 Sat by Pulse 99 99 Oximetry 05/24/22 05/24/22 05/24/22 04:10 04:24 04:29 Temperature Pulse Rate 83 92 H 81 Respiratory Rate Blood Pressure O2 Sat by Pulse 99 100 99 Oximetry 05/24/22 05/24/22 05/24/22 04:34 04:38 04:39 Temperature 97.9 F Pulse Rate 81 78 77 Respiratory Rate Blood Pressure 121/79 O2 Sat by Pulse 100 100 Oximetry 05/24/22 05/24/22 05/24/22 04:44 04:49 04:54 Temperature Pulse Rate 80 77 75 Respiratory Rate Blood Pressure O2 Sat by Pulse 100 100 100 Oximetry 05/24/22 05/24/22 05/24/22 04:59 05:04 05:09 Temperature Pulse Rate 79 76 79 Respiratory Rate Blood Pressure 130/76 O2 Sat by Pulse 100 100 100 Oximetry 05/24/22 05/24/22 05/24/22 05:14 05:19 05:30 Temperature Pulse Rate 80 81 79 Respiratory Rate Blood Pressure O2 Sat by Pulse 100 100 100 Oximetry 05/24/22 05/24/22 05/24/22 05:35 05:39 05:40 Temperature Pulse Rate 78 76 74 Respiratory Rate Blood Pressure 124/66 O2 Sat by Pulse 100 100 Oximetry 05/24/22 05/24/22 05/24/22 05:45 05:50 05:55 Temperature Pulse Rate 76 75 75 Respiratory Rate Blood Pressure O2 Sat by Pulse 100 100 100 Oximetry 05/24/22 05/24/22 05/24/22 06:00 06:05 06:10 Temperature Pulse Rate 75 76 77 Respiratory Rate Blood Pressure O2 Sat by Pulse 100 100 100 Oximetry 05/24/22 05/24/22 05/24/22 06:11 06:15 06:20 Temperature Pulse Rate 76 82 81 Respiratory Rate Blood Pressure 127/68 O2 Sat by Pulse 100 100 Oximetry 05/24/22 05/24/22 05/24/22 06:25 06:30 06:35 Temperature Pulse Rate 79 86 79 Respiratory Rate Blood Pressure O2 Sat by Pulse 100 100 100 Oximetry 05/24/22 05/24/22 05/24/22 06:39 06:40 06:51 Temperature Pulse Rate 76 80 77 Respiratory Rate Blood Pressure 129/78 O2 Sat by Pulse 100 100 Oximetry 05/24/22 05/24/22 05/24/22 06:56 07:01 07:06 Temperature Pulse Rate 75 79 76 Respiratory Rate Blood Pressure O2 Sat by Pulse 100 100 100 Oximetry 05/24/22 05/24/22 05/24/22 07:11 07:16 07:21 Temperature Pulse Rate 77 86 73 Respiratory Rate Blood Pressure O2 Sat by Pulse 99 100 100 Oximetry 05/24/22 05/24/22 05/24/22 07:26 07:31 07:36 Temperature Pulse Rate 77 81 76 Respiratory Rate Blood Pressure O2 Sat by Pulse 100 100 100 Oximetry 05/24/22 05/24/22 05/24/22 07:41 07:46 07:51 Temperature Pulse Rate 77 78 81 Respiratory Rate Blood Pressure O2 Sat by Pulse 100 100 100 Oximetry 05/24/22 05/24/22 05/24/22 07:56 08:01 08:06 Temperature Pulse Rate 76 83 77 Respiratory Rate Blood Pressure O2 Sat by Pulse 100 100 100 Oximetry 05/24/22 05/24/22 05/24/22 08:11 08:16 08:21 Temperature Pulse Rate 84 82 81 Respiratory Rate Blood Pressure O2 Sat by Pulse 100 100 100 Oximetry 05/24/22 05/24/22 05/24/22 08:26 08:30 08:31 Temperature 98.0 F Pulse Rate 95 H 81 80 Respiratory 20 Rate Blood Pressure 131/76 O2 Sat by Pulse 100 100 Oximetry 05/24/22 05/24/22 05/24/22 08:36 08:41 08:46 Temperature Pulse Rate 81 89 83 Respiratory Rate Blood Pressure O2 Sat by Pulse 100 100 100 Oximetry 05/24/22 05/24/22 05/24/22 08:51 08:56 09:01 Temperature Pulse Rate 92 H 84 88 Respiratory Rate Blood Pressure O2 Sat by Pulse 100 100 100 Oximetry 05/24/22 05/24/22 05/24/22 09:06 09:11 09:16 Temperature Pulse Rate 93 H 92 H 81 Respiratory Rate Blood Pressure O2 Sat by Pulse 100 100 100 Oximetry 05/24/22 05/24/22 05/24/22 09:21 09:26 09:31 Temperature Pulse Rate 80 84 85 Respiratory Rate Blood Pressure O2 Sat by Pulse 100 100 100 Oximetry 05/24/22 05/24/22 05/24/22 09:36 09:41 09:43 Temperature Pulse Rate 76 86 65 Respiratory Rate Blood Pressure O2 Sat by Pulse 100 100 79 L Oximetry - Exam Breasts: deferred Cardiovascular: Regular rate Lungs: Normal air movement Abdomen: Present: normal appearance - Labs Labs: Abnormal Labs 05/23/22 05/23/22 05/23/22 00:35 00:35 09:10 RBC 3.00 L Hgb 8.8 L Hct 25.9 L Sodium BUN Creatinine 0.5 L Alkaline Phosphatase Lactate Dehydrogenase 207 H Total Protein Albumin Urine Creatinine 59.2 H Urine Total Protein 12 H 05/24/22 07:57 RBC Hgb Hct Sodium 134 L BUN 6 L Creatinine 0.4 L Alkaline Phosphatase 152 H Lactate Dehydrogenase Total Protein 5.9 L Albumin 3.4 L Urine Creatinine Urine Total Protein Laboratory Results - last 24 hr 05/23/22 05/24/22 09:10 07:57 Sodium 134 L Potassium 3.8 Chloride 102.2 Carbon Dioxide 22 Anion Gap 14 BUN 6 L Creatinine 0.4 L Estimated GFR > 60 BUN/Creatinine Ratio 15 Glucose 76 Calcium 8.8 Total Bilirubin 0.60 AST 19 ALT 14 Alkaline Phosphatase 152 H Total Protein 5.9 L Albumin 3.4 L Albumin/Globulin Ratio 1.4 Urine Creatinine 59.2 H Protein/Creatinin Ratio 0.20 Urine Total Protein 12 H
[2022-05-24] MEDS: amLODIPine 10 MG TAB PO SCH (11:09)
[2022-05-24] MEDS: OXYTOCIN DRIP 30 UNITS/500 ML BAG IV SCH (11:10)
--- NOTE | 2022-05-24 11:24 | Electrocardiograph Report ---
[facility] Test Date: 2022-05-24 Test Time: 08:19:00 Pat Name: JIGAR MARQUEZ Department: Room: 2013 10 Gender: F Seat Trimmer: JOSE MANUEL : 1995 Requested By: ANTELMO JEFF Order Number: [id number] Reading MD: Yahir Louis Measurements Intervals [place] Rate: 77 P: 5 VT: 150 QRS: 7 QRSD: 82 T: 20 QT: 394 QTc: 446 Interpretive Statements Sinus rhythm No previous ECG available for comparison Electronically Signed On 05-24-2022 11:23:41 EDT by Yahir Louis
--- NOTE | 2022-05-24 16:29 | Event Note ---
Date: 05/24/22 Call patient nurse who reports that the patient is with contractions with Pitocin at 16 milliunits/min and patient just recently had spontaneous rupture membranes. We will continue Pitocin monitor change in cervix allow epidural if patient desires.
[2022-05-24] MEDS ORDERED: BUPIVACAINE/PF (0.25%) 2.5 MG/ML 10 ML VIAL INFILTRATI ONE (18:43)
[2022-05-24] MEDS ORDERED: ePHEDrine SULFATE 50 MG/1 ML INJ IV PRN (19:14)
[2022-05-24] MEDS ORDERED: fentaNYL-BUPIV 2 MCG/ML-0.125% 200 MCG/100 ML BAG EPIDURAL SCH (19:14)
[2022-05-24] MEDS ORDERED: NALOXONE 0.4 MG/1 ML INJ IV PRN (19:14)
--- NOTE | 2022-05-24 19:23 | Anesthesia Consultation ---
Anesthesia Consult and Med Hx Date of service: 05/24/22 - Airway Anesthetic Teeth Evaluation: Good ROM Head & Neck: Adequate Mental/Hyoid Distance: Adequate Mallampati Class: Class II Intubation Access Assessment: Probably Good - Pulmonary Exam CTA: Yes - Cardiac Exam Cardiac Exam: RRR - Pre-Operative Health Status ASA Pre-Surgery Classification: ASA2 Proposed Anesthetic Plan: Epidural - Pulmonary Hx Smoking: No Hx Asthma: No Hx Respiratory Symptoms: No SOB: No COPD: No Home Oxygen Therapy: No Hx Pneumonia: No Hx Sleep Apnea: No - Cardiovascular System Hx Hypertension: No Hx Coronary Artery Disease: No Hx Heart Attack/AMI: No Hx Angina: No Hx Percutaneous Transluminal Coronary Angioplasty (PTCA): No Hx Cardia Arrhythmia: No Hx Pacemaker: No Hx Internal Defibrillator: No Hx Valvular Heart Disease: No Hx Heart Murmur: No Hx Peripheral Vascular Disease: No - Central Nervous System Hx Neuromuscular Disorder: No Hx Seizures: No CVA: No Hx Back Pain: No Hx Psychiatric Problems: No - Gastrointestinal Hx Ulcer: No Hx Gastroesophageal Reflux Disease: No - Endocrine Hx Renal Disease: No Hx End Stage Renal Disease: No Hx Cirrhosis: No Hx Liver Disease: No Hx Insulin Dependent Diabetes: No Hx Non-Insulin Dependent Diabetes: No Hx Thyroid Disease: No Hx Hypothyroidism: No Hx Hyperthyroidism: No - Hematic Hx Anemia: No Hx Sickle Cell Disease: No - Other Systems Hx Alcohol Use: No Hx Substance Use: No Hx Cancer: No Hx Obesity: Yes
--- NOTE | 2022-05-24 19:23 | Progress Note ---
Labor Epidural - Labor Epidural Start Time: 18:56 Stop Time: 19:01 Performed by:: DIOMEDES LUND Procedure: Epidural Requested for Labor Pain. H&P and PT Chart reviewed and consent obtained. Time out performed and the procedure was explained, all questions answered. Patient was placed in a sitting position with monitors applied. The PTs back was prepped and draped in usual sterile fashion. The Skin was localized with 3 mL of 1% lidocaine at L3-L4. A 17-gauge Touhy epidural needle was advanced to ALBINA with saline at 7 cm and no blood/CSF was noted via epidural needle. Epidural catheter was advanced to 12 cm. There was negative aspiration for blood and CSF in the catheter and negative response to a test dose of 3 ml 1.5% lidocaine w/ Epi and a sterile dressing was applied Patient tolerated the procedure well and there were no immediate complications noted.
--- NOTE | 2022-05-24 20:28 | Event Note ---
Date: 05/24/22 Came to see the patient patient not comfortable with epidural cervix 2 and half to 3 cm on 70% effaced -3 station. IUPC and scalp electrode was placed. We will continue Pitocin per protocol.
--- NOTE | 2022-05-25 00:44 | Event Note ---
Date: 05/25/22 Called and spoke to the RN. States Pitocin 20 milliunits/min patient's last cervical check approximately an hour ago was 4 cm. We will continue Pitocin per protocol anticipate vaginal delivery.
[2022-05-25] MEDS: AMPICILLIN/NS 1 GM/50 ML 1 GM/50 ML BAG IV SCH (01:27)
[2022-05-25] MEDS ORDERED: LIDOCAINE (2%) 20 MG/1 ML VIAL 20 ML MDV INFILTRATI ONE (04:43)
--- NOTE | 2022-05-25 05:06 | Procedure Note ---
OB Delivery Note - Delivery Date of Delivery: 05/25/22 Surgeon: IZA CLEMONS Estimated blood loss: other (400cc) - Vaginal Delivery position: OA Delivery induction: cervidil Delivery augmentation: pitocin Delivery monitor: external uterine, internal FHT, internal uterine Route of delivery: Delivery placenta: spontaneous Episiotomy: none Delivery laceration: 2nd degree Delivery repair: vicryl Anesthesia: local, epidural Delivery comments: of infant over intact perineum. Infant to mother's chest for skin to skin. Cord cut and clamped. . Spontaneous delivery of placenta, intact, 3 vessels noted. Perineum and vaginal inspected, second-degree midline laceration was noted. This was repaired in usual fashion with 3-0 Vicryl. Fundus firm, minimal bleeding noted. Infant left in stable condition in the care of RN. Sponge count correct. - Infant A at 1 minute: 8 at 5 minutes: 9 Infant Gender: Female (7 pounds 1 ounce)
[2022-05-25] MEDS: amLODIPine 10 MG TAB PO SCH (10:38)
[2022-05-25] MEDS ORDERED: WITCH HAZEL/ GLYCERIN PAD TP PRN (23:03)
[2022-05-25] MEDS ORDERED: LANOLIN/ZINC/DIMETHICONE (LANSINOH) 7 GM TP PRN (23:03)
[2022-05-25] MEDS ORDERED: oxyCODONE /ACETAMINOPHEN 5-325MG TAB PO PRN (23:03)
[2022-05-25] MEDS ORDERED: MAGNESIUM HYDROXIDE (MOM) ORAL LIQD UDC PO PRN (23:03)
[2022-05-25] MEDS ORDERED: PROMETHAZINE 25 MG TAB PO PRN (23:03)
[2022-05-25] MEDS ORDERED: diphenhydrAMINE 25 MG CAP PO PRN (23:03)
[2022-05-25] MEDS ORDERED: ACETAMINOPHEN 325 MG TAB PO PRN (23:03)
[2022-05-25] MEDS: IBUPROFEN 600 MG TAB PO SCH (23:57)
[2022-05-26] MEDS: IBUPROFEN 600 MG TAB PO SCH ×2 (05:44→11:59)
--- NOTE | 2022-05-26 08:11 | Event Note ---
Date: 05/26/22 () Pt doing well. . Denies GALINDO, blurred vision, spots before her eyes, chest pain, shortness of breath, and upper abdominal pain. She is doing well . H/H on admission was 8.8/25.9. We discussed discharge home today after H/H are drawn, resulted, and to make sure that she will not need a blood transfusion before discharge home. We also discussed need for iron supplementation at home. Pt verbalized understanding and agreed with the plan of care.
--- NOTE | 2022-05-26 08:44 | Post Anesthesia Evaluation ---
- Post Anesthesia Evaluation Patient Participated: Yes Airway Patent: Yes Stable Respiratory Function: Yes Nausea/Vomiting: No Temp > 96.8F: Yes Pain Manageable: Yes Adequeate Hydration: Yes Anesthesia Complications: No Block Receding Appropriately: Yes Patient on Ventilator: No
[2022-05-26] MEDS ORDERED: PRENATAL VIT27-FE FUMARATE-FOLIC ACID VIT TAB PO SCH (10:00)
[2022-05-26] MEDS ORDERED: DOCUSATE SODIUM 100 MG CAP PO SCH (10:00)
[2022-05-26 11:35] LABS: Hematocrit 21.5 % (30.3-42.9); Hemoglobin 7.2 gm/dl (10.1-14.3)
[2022-05-26 12:18] VITALS: BP 121/73
--- NOTE | 2022-05-26 13:00 | Discharge Summary ---
Providers - Providers Date of Admission: 05/22/22 23:29 Date of discharge: 05/26/22 Attending physician: RHEA MEDINA MD 05/25/22 23:03 Consult to Community Relations Specialist [CONS] Routine Reason For Exam: assistance with , SNS Primary care physician: RHEA MEDINA MD Hospitalization Reason for admission: induction of labor Delivery: Episiotomy: none Laceration: 2nd degree Other procedures: none complications: none Discharge diagnosis: IUP at term delivered baby: female Pertinent studies: Discussed with patient when to call the consumer marketing specialist provider after discharge: chest pain, shortness of breath, upper abdominal pain, feeling dizzy or lightheaded, GALINDO, blurred vision, spots before her eyes. Pt to keep taking her Amlodipine as prescribed. We also discussed if her blood pressures are 140/90 or greater and she has taken her medication, she will need to call the on-call provider for further instructions. Also of note her H/H was 7.1/21.5, down from 8.8/25.9. Discussed with patient taking iron supplements daily and to watch for chest pain, feeling short of breath, feeling dizzy or lightheaded. Pt verbalized understanding of all instructions. Hospital course: S: Pt doing well. Ambulating, voiding, and passing flatus. O: VSS. H/H 7.1//5, asymptomatic anemia from delivery. A: 26 y.o. s/p . In good condition . P: Discharge patient home with instructions. Pt to schedule blood pressure check in the office in 1 week. Condition at discharge: Good Disposition: 01 HOME / SELF CARE / HOMELESS Plan - Discharge Medications Prescriptions: Docusate Sodium [Colace] 100 mg PO BID PRN #60 capsule PRN Reason: Constipation Ferrous Sulfate [Feosol 325 MG tab] 325 mg PO QDAY #30 tablet - Provider Discharge Summary Activity: routine, no sex for 6 weeks, no heavy lifting 4 weeks, no strenuous exercise Diet: routine Instructions: routine Additional instructions: [] Smoking cessation referral if applicable(refer to patient education folder for contact #) [] Refer to [facility] Booklet Call your doctor immediately for: * Fever > 100.5 * Heavy vaginal bleeding ( >1 pad per hour) * Severe persistent headache * Shortness of breath * Reddened, hot, painful area to leg or breast - Follow up plan Follow up: RHEA MEDINA MD [Primary Care Provider] - 7 Days (- Congratulations on the of your baby girl! - Thank you for allowing us to take care of you! - Please schedule a blood pressure check in the office in 1 week. - If you have any of the following symptoms at home, please call the on-call provider: headaches, blurred vision, spots before your eyes, chest pain, feeling like you can't catch your breath, your blood pressure is 140/90 or greater with these symptoms or without these symptoms, or severe pain in your belly. - Should you have any questions or concerns after discharge, please do not hesitate to call the office at . )
[2022-05-27] MEDS ORDERED: amLODIPine 10 MG TAB PO SCH (10:00)
== END 2022-05-26 15:23 | disposition home or self-care (01) | DRG 774 ==
LOC: LD 23:29 → OB 05-25 20:36
PROVIDERS: ADMIT Student in an Organized Health Care Education/Training Program; ATTEND Student in an Organized Health Care Education/Training Program
PROC: 10E0XZZ Delivery of Products of Conception, External Approach (ICD-10-PCS; principal; 2022-05-25)
PROC: 0KQM0ZZ Repair Perineum Muscle, Open Approach (ICD-10-PCS; 2022-05-25)
PROC: 3E0R3BZ Introduction of Anesthetic Agent into Spinal Canal, Percutaneous Approach (ICD-10-PCS; 2022-05-25)
PROC: 00HU33Z Insertion of Infusion Device into Spinal Canal, Percutaneous Approach (ICD-10-PCS; 2022-05-25)
PROC: 10H07YZ Insertion of Other Device into Products of Conception, Via Natural or Artificial Opening (ICD-10-PCS; 2022-05-25)
PROC: 3E0P7VZ Introduction of Hormone into Female Reproductive, Via Natural or Artificial Opening (ICD-10-PCS; 2022-05-25)
DX: O10.92 Unspecified pre-existing hypertension complicating childbirth (principal); O98.82 Other maternal infectious and parasitic diseases complicating childbirth; Z37.0 Single live birth; Z3A.39 39 weeks gestation of pregnancy; Z20.822 Contact with and (suspected) exposure to COVID-19; B95.1 Streptococcus, group B, as the cause of diseases classified elsewhere; O70.1 Second degree perineal laceration during delivery; O90.81 Anemia of the puerperium; Z91.040 Latex allergy status
CPT/HCPCS: 36415; 59200; 71045; 80053; 81001; 82565; 82570; 83615; 84156; 84450; 84460; 84550; 85014; 85018; 85027; 86592; 86850; 86900; 86901; 93005; G0378; J3490; J0290; J2590; J3010; J7120; U0003

== ENCOUNTER 2022-06-19 14:26 | Inpatient (IN) | payer MEDICAID ==
[2022-06-19] MEDS ORDERED: PROMETHAZINE 25 MG TAB PO PRN (14:30)
[2022-06-19] MEDS ORDERED: WITCH HAZEL/ GLYCERIN PAD TP PRN (14:30)
[2022-06-19] MEDS ORDERED: PROMETHAZINE 25 MG RECT SUPP PR PRN (14:30)
[2022-06-19] MEDS ORDERED: ONDANSETRON 4 MG/2 ML INJ IV PRN (14:30)
[2022-06-19] MEDS ORDERED: diphenhydrAMINE 25 MG CAP PO PRN (14:30)
[2022-06-19] MEDS ORDERED: LANOLIN/ZINC/DIMETHICONE (LANSINOH) 7 GM TP PRN (14:30)
[2022-06-19] MEDS ORDERED: MAGNESIUM HYDROXIDE (MOM) ORAL LIQD UDC PO PRN (14:30)
[2022-06-19] MEDS ORDERED: ACETAMINOPHEN 325 MG TAB PO PRN (14:56)
[2022-06-19] MEDS ORDERED: oxyCODONE /ACETAMINOPHEN 5-325MG TAB PO PRN (14:56)
[2022-06-19] MEDS ORDERED: MAGNESIUM SULFATE 4 GM/100 ML BAG IV ONE (14:56)
[2022-06-19] MEDS ORDERED: ACETAMINOPHEN 500 MG TAB ONE (16:13)
--- NOTE | 2022-06-19 16:24 | History and Physical Report ---
History of Present Illness Date of examination: 06/19/22 Date of admission: 06/19/22 15:33 Chief complaint: Elevated blood pressures in the office. History of present illness: Pt is a 26 y.o. who is now a who presented for a blood pressure check . She has a history of cTHN. She was a on 05/25 but never came to the office for her blood pressure check. She presented for a visit on 06/18 and the following blood pressures were obtained: BP #1 160/90, #2 150/100, #3 140/100. According to the patient she took her AM dose of Norvasc. When patient was told she needed to be readmitted for magnesium infusion she refused but agreed to another blood pressure check on today (06/19). Today's blood pressure was elevated 140's/100's X2. Pt then agreed to admission for Pre-eclampsia superimposed on cHTN and magnesium infusion after visit. Past History : 1 Term Births: 1 Premature Births: 0 Living Children: 1 Para: 0 Mult. Births: 0 Prev : 0 Prev. attempt? 0 Aborta: 0 Elect. Ab: 0 Spont. Ab: 0 Ectopics: 0 Past Medical History: Reviewed history from 10/08/2021 and no changes required: Hypertension Past Surgical History: Reviewed history from 08/28/2021 and no changes required: negative Risk Factors: Smoked Tobacco Use: Never smoker Smokeless Tobacco Use: Never Counseled to Quit/Cut Down: yes Passive Smoke Exposure: no HIV High Risk Behavior: no Caffeine Use: 0 drinks per day Exercise: yes Times/wk: 0 Type of Exercise: walking Exercise Counseling: yes Seatbelt Use: preg-service counselor % Sun Exposure: occasionally No Dietary Counseling Reason: pn yes Past Medical History Anesthesia Complications: negative Anemia: negative Autoimmune Disorder: negative Bleeding Disorder: negative Blood Transfusions: negative Breast Disease: negative Diabetes: negative Heart Disease: negative Hypertension: positive Hepatitis/Liver Disease: negative Kidney Disease/UTI: negative Neurologic/Epilepsy/Migraines: negative Phlebitis/Varicosities: negative Psychiatric: negative Pulmonary Disease/Asthma: negative Thyroid Disease: negative Hospitalizations: negative Surgery (Non-tipping machine operator): negative Abnormal PAP: negative CHLOE Exposure: negative Infertility: negative Uterine Anomaly: negative Uterine Surgery (not C/S): negative Other Gynecologic Problems: negative Social Hx: Patient is single Smoking History: Patient has never smoked. Infection History Hx of STD: none HIV Risk Eval: no Hepatitis B Risk Eval: low risk Personal hx. of genital herpes: no Partner hx. of genital herpes: no Rash, Viral, or Febrile illness since last LMP? no Varicella/Chicken Pox Status: No TB Risk: no Genetic History Congenital Heart Defect: Mom: yes Dad: no Comments: Mother César Disease: Mom: no Dad: no Thalassemia Mom: no Dad: no Neural Tube Defect Mom: no Dad: no Down's Syndrome Mom: no Dad: no Jax-Sachs Mom: no Dad: no Sickle Cell Disease/Trait Mom: no Dad: no Hemophilia Mom: no Dad: no Muscular Dystrophy Mom: no Dad: no Cystic Fibrosis Mom: no Dad: no [place] Chorea Mom: no Dad: no Mental Retardation Mom: no Dad: no Fragile X Mom: no Dad: no Other Genetic/Chromosomal Disorder Mom: no Dad: no Child w/other defect Mom: no Dad: no Enviromental Exposures Xray Exposure: no Medication, drug, or alcohol use since LMP: no Chemical/Other Exposure: no Exposure to Cat Liter: no Hx of Parvovirus (Fifth Disease): no Occupational Exposure to Children: none Active Medications (reviewed today): NORVASC 5MG () Current Allergies (reviewed today): * LATEX (Critical) Past History Past Medical History: hypertension Past Surgical History: no surgical history Family/Genetic History: none Social history: no significant social history - Obstetrical History : 1 Para: 1 Hx # Term Pregnancies: 1 Number of Pregnancies: 0 Spontaneous Abortions: 0 Induced : 0 Number of Living Children: 1 #1 Gender: Female year: [birth year] Birthweight: 7 lb 1 oz Method of Delivery: Vaginal Medications and Allergies Allergies Allergy/AdvReac Type Severity Reaction Status Date / Time latex Allergy Swelling Verified 05/23/22 03:14 Home Medications Medication Instructions Recorded Confirmed Last Taken Type Norvasc 10 mg PO DAILY 05/24/22 05/24/22 05/22/22 10:00 History Tablet 1 tab PO DAILY 05/24/22 05/24/22 05/19/22 10:00 History Docusate Sodium [Colace] 100 mg PO BID PRN #60 capsule 05/26/22 Unknown Rx Ferrous Sulfate [Feosol 325 MG tab] 325 mg PO QDAY #30 tablet 05/26/22 Unknown Rx Active Meds: Active Medications Acetaminophen (Acetaminophen 325 Mg Tab) 1,000 mg PO Q6H PRN PRN Reason: Pain MILD(1-3)/Fever >100.5/GALINDO Amlodipine Besylate (Amlodipine 10 Mg Tab) 10 mg PO QDAY [facility] Bisacodyl (Bisacodyl 10 Mg Rect Supp) 10 mg ME BID PRN PRN Reason: Constipation Diphenhydramine HCl (Diphenhydramine 25 Mg Cap) 25 mg PO Q6H PRN PRN Reason: Itching Docusate Sodium (Docusate Sodium 100 Mg Cap) 100 mg PO BID [facility] Magnesium Sulfate (Magnesium Sulfate 40gm/1000ml) 40 gm in 1,000 mls @ 50 mls/hr IV DIRECT TAWNY Magnesium Hydroxide (Magnesium Hydroxide (Mom) Oral Liqd Udc) 30 ml PO HS PRN PRN Reason: Constipation Multi-Ingredient Ointment (Lanolin/Zinc/Dimethicone (Lansinoh) 7 Gm) 1 applic TP PRN PRN PRN Reason: Sore Nipples Multivitamins/Iron/Calcium ( [id number] Fumarate-Folic Acid Vit Tab) 1 each PO QDAY [facility] Ondansetron HCl (Ondansetron 4 Mg/2 Ml Inj) 4 mg IV Q8H PRN PRN Reason: Nausea And Vomiting Oxycodone/Acetaminophen (Oxycodone /Acetaminophen 5-325mg Tab) 1 tab PO Q6H PRN PRN Reason: Pain, Moderate (4-6) Promethazine HCl (Promethazine 25 Mg Rect Supp) 25 mg ME Q6H PRN PRN Reason: Nausea And Vomiting Promethazine HCl (Promethazine 25 Mg Tab) 25 mg PO Q6H PRN PRN Reason: Nausea And Vomiting Sodium Chloride (Sodium Chloride 0.9% 10 Ml Flush Syringe) 10 ml IV PRN NR Stop: 06/30/22 23:59 Witch Catherine/Glycerin (Witch Catherine/ Glycerin Pad) 1 each TP PRN PRN PRN Reason: Hemorrhoid/cleansing/soothing Review of Systems All systems: negative - Vital Signs Vital signs: Vital Signs Pulse BP Pulse Ox 71 147/86 100 06/19/22 15:48 06/19/22 15:48 06/19/22 15:48 Temp Pulse Resp BP Pulse Ox 97.9 F 81 16 135/86 99 06/19/22 15:50 06/19/22 16:18 06/19/22 15:50 06/19/22 16:18 06/19/22 16:18 Pt denies blurred vision, spots before her eyes, chest pain, shortness of breath, and upper abdominal pain. Has a slight GALINDO. - Physical Exam Breasts: Positive: deferred Cardiovascular: Normal S1, Normal S2 Lungs: Positive: Normal air movement Abdomen: Positive: normal appearance, soft Genitourinary (Female): Positive: normal external genitalia, normal perenium Vulva: both: normal Uterus: Positive: normal size Extremities: Positive: normal Deep Tendon Reflex Grade: Normal +2 Results Result Diagrams: 06/19/22 20:05 06/19/22 20:05 All other labs normal. Pre- eclampsia labs drawn on admission. Assessment and Plan A: 26 y.o. , Pre-eclampsia superimposed on cHTN. - Patient Problems (1) Pre-eclampsia superimposed on chronic hypertension, delivered Current Visit: Yes Status: Acute Plan to address problem: Consulted with Dr. Marti. - Admission to labor and delivery. Initiate IV. Draw Pre-eclampsia labs. Norvasc 10 mg PO daily and Procardia 30 mg PO daily ordered. Consider ordering anti-hypertensives Consider internal medicine consult if blood pressures remain uncontrolled. Monitor for s/sx of worsening Pre-eclampsia. Monitor blood pressures. Alvarado placement. - Strict I&O's. Magnesium Infusion. - 4 gm bolus. - 2 gm/hr. Cardiac diet
[2022-06-19] MEDS ORDERED: LACTATED RINGERS 1,000 ML ONE (18:07)
[2022-06-19] MEDS: LACTATED RINGERS 1,000 ML IV SCH (18:30)
[2022-06-19] MEDS: MAGNESIUM SULFATE 40GM/1000ML 40 GM/1,000 ML BAG IV SCH (18:45)
[2022-06-19 20:34] LABS: Hematocrit 30.9 % (30.3-42.9); Mean Corpuscular HGB Conc 32 % (30-34); Mean Corpuscular Volume 86 fl (79-97); Platelet Count 276 K/mm3 (140-440); Red Blood Count 3.57 M/mm3 (3.65-5.03); Red Cell Distribution Width 15.5 % (13.2-15.2)
[2022-06-19 20:53] LABS: Alanine Aminotransferase 11 units/L (7-56); Uric Acid 3.9 mg/dL (3.5-7.6)
[2022-06-19 21:44] LABS: Color,Urine Colorless (Yellow)
[2022-06-19 21:46] LABS: Mucus,Urine FEW /HPF
[2022-06-20] MEDS: LACTATED RINGERS 1,000 ML IV SCH (08:15)
--- NOTE | 2022-06-20 08:19 | Progress Note ---
Assessment and Plan patient resting without complaints. denies GALINDO/visual changes/epigastric pain. Baby and s/o at bedside. Plan to continue mag sulfate x 24hrs and continue PO antihypertensives. Blood pressure overnight 100-130's/50-80's. - Patient Problems (1) Pre-eclampsia superimposed on chronic hypertension, delivered Current Visit: Yes Status: Acute Subjective - Subjective Date of service: 06/20/22 Principal diagnosis: readmit; mag sulfate Patient reports: appetite normal, pain well controlled, flatus, bowel movement, no nauseated Objective - Vital Signs Latest vital signs: Vital Signs Temp Pulse Resp BP BP Pulse Ox Pulse Ox 06/20/22 08:15 73 132/73 06/20/22 08:10 71 100 06/20/22 08:05 68 99 06/20/22 08:00 67 99 06/20/22 07:55 66 98 06/20/22 07:50 65 99 06/20/22 07:45 66 129/73 98 06/20/22 07:40 67 99 06/20/22 07:35 63 99 06/20/22 07:30 64 99 06/20/22 07:25 65 99 06/20/22 07:20 62 99 06/20/22 07:15 63 135/80 99 06/20/22 07:10 68 99 06/20/22 07:05 67 100 06/20/22 07:00 68 98 06/20/22 06:55 72 100 06/20/22 06:50 68 99 06/20/22 06:45 63 132/82 99 06/20/22 06:40 63 100 06/20/22 06:35 69 99 06/20/22 06:30 66 99 06/20/22 06:25 66 100 06/20/22 06:20 69 100 06/20/22 06:15 73 119/73 100 06/20/22 06:10 70 100 06/20/22 06:05 66 99 06/20/22 06:00 66 18 99 06/20/22 05:55 66 98 06/20/22 05:50 67 100 06/20/22 05:45 65 123/78 99 06/20/22 05:40 67 100 06/20/22 05:35 66 99 06/20/22 05:30 64 100 06/20/22 05:25 65 100 06/20/22 05:20 69 100 06/20/22 05:15 64 123/79 100 06/20/22 05:10 69 100 06/20/22 05:05 69 100 06/20/22 05:00 71 99 06/20/22 04:55 67 99 06/20/22 04:50 64 98 06/20/22 04:45 66 16 123/72 99 06/20/22 04:40 82 100 06/20/22 04:35 65 100 06/20/22 04:30 67 99 06/20/22 04:25 69 100 06/20/22 04:20 76 100 06/20/22 04:15 62 104/58 98 06/20/22 04:10 65 100 06/20/22 04:05 62 99 06/20/22 04:00 61 100 06/20/22 03:55 59 L 98 06/20/22 03:50 62 99 06/20/22 03:45 62 100/55 99 06/20/22 03:40 62 99 06/20/22 03:35 60 100 06/20/22 03:30 62 100 06/20/22 03:25 61 100 06/20/22 03:20 62 100 06/20/22 03:15 62 102/59 99 06/20/22 03:10 68 100 06/20/22 03:05 66 99 06/20/22 03:00 61 16 102/59 99 06/20/22 02:55 64 99 06/20/22 02:52 100 06/20/22 02:50 64 99 06/20/22 02:45 63 115/72 99 06/20/22 02:40 62 100 06/20/22 02:37 64 16 126/69 100 06/20/22 02:35 64 99 06/20/22 02:30 63 100 06/20/22 02:25 64 100 06/20/22 02:20 69 100 06/20/22 02:15 68 126/69 100 06/20/22 02:10 65 100 06/20/22 02:05 63 100 06/20/22 02:00 86 100 06/20/22 01:55 68 100 06/20/22 01:50 67 99 06/20/22 01:45 68 123/74 100 06/20/22 01:40 68 100 08/26/22 01:35 68 100 06/20/22 01:30 69 100 06/20/22 01:25 67 100 06/20/22 01:20 69 99 06/20/22 01:15 67 123/74 99 06/20/22 01:10 68 100 06/20/22 01:05 68 100 06/20/22 01:00 71 100 06/20/22 00:55 69 100 06/20/22 00:50 69 100 06/20/22 00:45 69 135/80 100 06/20/22 00:40 70 99 06/20/22 00:35 75 100 06/20/22 00:30 74 100 99 06/20/22 00:25 77 100 06/20/22 00:20 78 100 06/20/22 00:15 71 129/71 100 06/20/22 00:10 69 99 06/20/22 00:05 70 100 06/20/22 00:00 71 100 06/19/22 23:55 70 99 06/19/22 23:50 79 100 06/19/22 23:45 70 125/70 100 06/19/22 23:40 71 100 06/19/22 23:35 71 100 06/19/22 23:30 71 100 06/19/22 23:25 72 100 06/19/22 23:20 71 100 06/19/22 23:15 76 108/55 100 06/19/22 23:10 72 100 06/19/22 23:05 88 100 06/19/22 23:00 75 100 06/19/22 22:55 79 100 06/19/22 22:50 75 100 06/19/22 22:45 76 122/74 100 06/19/22 22:40 76 99 06/19/22 22:35 87 100 06/19/22 22:30 75 99 06/19/22 22:25 79 100 06/19/22 22:20 79 100 06/19/22 22:15 79 121/67 100 06/19/22 22:10 78 100 06/19/22 22:05 73 100 06/19/22 22:00 83 100 06/19/22 21:55 77 100 06/19/22 21:50 77 100 06/19/22 21:45 79 100 06/19/22 21:40 77 100 06/19/22 21:35 75 100 06/19/22 21:30 81 100 06/19/22 21:25 74 100 06/19/22 21:20 78 100 06/19/22 21:15 78 123/71 100 06/19/22 21:10 79 100 06/19/22 21:05 87 99 06/19/22 21:00 91 H 100 06/19/22 20:55 81 100 06/19/22 20:50 77 100 06/19/22 20:45 83 117/72 100 06/19/22 20:40 82 100 06/19/22 20:35 82 100 06/19/22 20:30 79 100 06/19/22 20:25 83 100 06/19/22 20:20 83 100 06/19/22 20:15 84 128/77 100 06/19/22 20:10 83 100 06/19/22 20:05 83 100 06/19/22 20:00 83 100 06/19/22 19:55 81 100 06/19/22 19:50 82 100 06/19/22 19:45 81 132/75 100 06/19/22 19:40 79 100 06/19/22 19:35 80 100 06/19/22 19:30 78 100 06/19/22 19:25 83 100 06/19/22 19:24 98.1 F 06/19/22 19:20 83 100 06/19/22 19:15 83 138/84 100 06/19/22 19:10 80 99 06/19/22 19:05 84 100 06/19/22 19:00 79 100 06/19/22 18:55 83 100 06/19/22 18:50 78 100 06/19/22 18:45 86 100 06/19/22 18:40 78 99 06/19/22 18:35 77 99 06/19/22 18:34 76 147/89 06/19/22 18:30 72 99 06/19/22 18:25 78 99 06/19/22 18:20 76 99 06/19/22 18:15 88 99 06/19/22 18:10 75 99 06/19/22 18:05 68 99 06/19/22 18:04 73 129/75 06/19/22 18:00 73 99 06/19/22 17:55 75 99 06/19/22 17:50 82 97 06/19/22 17:47 91 H 90 06/19/22 17:45 83 100 06/19/22 17:40 78 99 06/19/22 17:35 76 99 06/19/22 17:34 74 129/85 06/19/22 17:30 74 100 06/19/22 17:25 81 100 06/19/22 17:20 86 100 06/19/22 17:15 70 100 06/19/22 17:14 78 L 06/19/22 17:10 69 100 06/19/22 17:05 67 99 06/19/22 17:00 68 99 06/19/22 16:55 70 99 06/19/22 16:50 73 100 06/19/22 16:49 70 153/93 06/19/22 16:45 69 98 06/19/22 16:40 74 98 06/19/22 16:35 77 100 06/19/22 16:30 86 97 06/19/22 16:18 81 135/86 99 06/19/22 16:13 73 98 06/19/22 16:08 66 99 06/19/22 16:03 70 99 06/19/22 15:59 89 74 L 06/19/22 15:58 73 100 06/19/22 15:54 100 06/19/22 15:53 69 99 06/19/22 15:50 97.9 F 78 16 147/86 100 06/19/22 15:48 71 147/86 100 Intake and Output 06/19/22 06/20/22 06/20/22 23:59 07:59 15:59 Intake Total 125 Output Total 100 1800 Balance -100 -1675 Intake: Intake, Free Water 125 Output: Urine 100 1800 Indwelling Catheter 100 1700 Uretheral (Alvarado) 100 Other: Total, Output Amount 100 250 Weight 95.708 kg - Exam Breasts: Present: normal, Cardiovascular: Present: Regular rate Lungs: Present: Normal air movement Abdomen: Present: normal appearance, soft Extremities: Present: normal Deep Tendon Reflex Grade: Normal +2 - Labs Labs: Abnormal lab results 06/19/22 06/19/22 06/20/22 Range/Units 20:05 20:05 00:18 RBC 3.57 L (3.65-5.03) M/mm3 Hgb 10.0 L (10.1-14.3) gm/dl RDW 15.5 H (13.2-15.2) % Magnesium 5.50 H (1.7-2.3) mg/dL Lactate Dehydrogenase 191 H (91-180) units/L
[2022-06-20] MEDS: DOCUSATE SODIUM 100 MG CAP PO SCH ×2 (09:40→22:00)
[2022-06-20] MEDS: amLODIPine 10 MG TAB PO SCH (09:41)
[2022-06-20] MEDS: PRENATAL VIT27-FE FUMARATE-FOLIC ACID VIT TAB PO SCH (09:41)
[2022-06-20] MEDS: NIFEdipine XL 30 MG TAB PO SCH (09:42)
[2022-06-20] MEDS: MAGNESIUM SULFATE 40GM/1000ML 40 GM/1,000 ML BAG IV SCH (13:00)
[2022-06-21 09:12] VITALS: BP 130/81
[2022-06-21] MEDS: PRENATAL VIT27-FE FUMARATE-FOLIC ACID VIT TAB PO SCH (09:46)
[2022-06-21] MEDS: NIFEdipine XL 30 MG TAB PO SCH (09:46)
[2022-06-21] MEDS: DOCUSATE SODIUM 100 MG CAP PO SCH (09:46)
[2022-06-21] MEDS: amLODIPine 10 MG TAB PO SCH (09:46)
--- NOTE | 2022-06-21 10:33 | Discharge Summary ---
Providers - Providers Date of Admission: 06/19/22 15:33 Date of discharge: 06/21/22 (desires d/c home) Attending physician: RHEA MEDINA MD Primary care physician: RHEA MEDINA MD Hospitalization Reason for admission: blood pressure control, mag sulfate Condition: Good Disposition: 01 HOME / SELF CARE / HOMELESS Final Discharge Diagnosis (Prints w/discharge instructions): pre-e superimosed on htn Time spent for discharge: 20 - Discharge Diagnoses (1) Pre-eclampsia superimposed on chronic hypertension, delivered Status: Acute Core Measure Documentation - Palliative Care Palliative Care/ Comfort Measures: Not Applicable - Core Measures Any of the following diagnoses?: none Exam - Constitutional Vitals: Temp Pulse Resp BP Pulse Ox 98 F 86 20 130/81 100 06/21/22 08:10 06/21/22 08:10 06/21/22 08:10 06/21/22 08:10 06/21/22 08:31 General appearance: Present: no acute distress, well-nourished - EENT Eyes: Present: PERRL ENT: hearing intact, clear oral mucosa - Neck Neck: Present: supple, normal ROM - Respiratory Respiratory effort: normal Respiratory: bilateral: CTA - Cardiovascular Rhythm: regular Heart Sounds: Absent: rub, click - Extremities Extremities: No edema Peripheral Pulses: within normal limits - Abdominal General gastrointestinal: Present: soft, non-tender, non-distended, normal bowel sounds Female genitourinary: Present: normal - Integumentary Integumentary: Present: clear, warm, dry - Musculoskeletal Musculoskeletal: gait normal, strength equal bilaterally - Psychiatric Psychiatric: appropriate mood/affect, intact judgment & insight - Neurologic Neurologic: CNII-XII intact, moves all extremities Plan Activity: no restrictions Diet: regular Care Plan Goals: Please follow up with [X] Smoking cessation referral if applicable(refer to patient education folder for contact #) [X] Refer to [facility] Booklet Call your doctor immediately for: * Fever > 100.5 * Heavy vaginal bleeding ( >1 pad per hour) * Severe persistent headache * Shortness of breath * Reddened, hot, painful area to leg or breast Follow up with: RHEA MEDINA MD [Primary Care Provider] - 7 Days Forms: [facility] Discharge Summary Prescriptions: amLODIPine 10 mg PO DAILY #30 tab NIFEdipine XL [Procardia Xl] 30 mg PO QDAY #30 tablet
== END 2022-06-21 12:08 | disposition home or self-care (01) | DRG 776 ==
LOC: 3A 14:26 → UNDOADMIN 14:26 → LD 15:33 → OB 06-20 21:56
PROVIDERS: ADMIT Student in an Organized Health Care Education/Training Program; ATTEND Student in an Organized Health Care Education/Training Program
DX: O11.5 Pre-existing hypertension with pre-eclampsia, complicating the puerperium (principal); Z91.040 Latex allergy status
CPT/HCPCS: 36415; 81001; 82565; 83615; 83735; 84450; 84460; 84550; 85027; 86850; 86900; 86901; G0378; J3475; J7120